=== PATIENT | female | born 1965 | race Hispanic/Latino ===

== ENCOUNTER 2017-04-10 06:26 | Emergency (ER) | payer MEDICAID ==
[2017-04-10 06:27] VITALS: BMI 24.2
[2017-04-10 07:11] VITALS: TEMP 99.5
--- NOTE | 2017-04-10 07:50 | ED PDOC ---
Arrival/HPI - General Chief Complaint: Shortness Of Breath Time Seen by Provider: 04/10/17 07:44 - History of Present Illness Narrative History of Present Illness (Text): 51 y/o F c PMHx COPD on home O2 p/w shortness of breath this morning. Patient states she awoke feeling short of breath. She states this dypsnea is the same as her COPD. She states it is now resolved, and she feels completely better. She reports cough productive of green sputum now. Denies fever, nausea, vomiting , body aches, ear pain, sore throat, recent travel, or sick contacts. Past Medical History - Infectious Disease Hx of Infectious Diseases: None - Tetanus Immunization Tetanus Immunization: Unknown - Cardiac Hx Heart Murmur: Yes - Pulmonary Hx Asthma: Yes Hx Chronic Obstructive Pulmonary Disease (COPD): Yes - Neurological Hx Neurological Disorder: No - HEENT Hx HEENT Disorder: No - Renal Hx Renal Disorder: No - Endocrine/Metabolic Hx Diabetes Mellitus Type 2: Yes - Hematological/Oncological Hx Blood Disorders: No - Integumentary Hx Dermatological Disorder: (shingles) - Musculoskeletal/Rheumatological Hx Back Pain: Yes Hx Falls: No Hx Herniated Disk: Yes - Gastrointestinal Hx Gastroesophageal Reflux: Yes - Genitourinary/Gynecological Hx Cervical Cancer: (pre cervical ca cone bx) - Psychiatric Hx Anxiety: Yes Hx Depression: Yes Hx Emotional Abuse: No Hx Physical Abuse: No Hx Substance Use: No - Past Surgical History Past Surgical History: No Previous - Surgical History Hx Section: Yes Other/Comment: x 2 - Anesthesia Hx Anesthesia: Yes Hx Anesthesia Reactions: No Hx Malignant Hyperthermia: No - Suicidal Assessment Feels Threatened In Home Enviroment: No Family/Social History Family/Social History: No Known Family HX Smoking Status: Light Smoker < 10 Cigarettes Daily Hx Alcohol Use: No Hx Substance Use: No Allergies/Home Meds Allergies/Adverse Reactions: Allergies ketorolac tromethamine [From Toradol] Allergy (Verified 04/10/17 06:43) NAUSEA Review of Systems - Physician Review All systems were reviewed & negative as marked: Yes - Review of Systems Constitutional: absent: Fevers Gastrointestinal: absent: Abdominal Pain Physical Exam - Physical Exam Narrative Physical Exam (Text): Gen: NAD Head: NC Eyes: PERRL ENT: No pharyngeal erythema or exudates. Neck: No stiffness Chest: Midline sternotomy scar CV: Regular rate Lungs: No wheezing. Abd: Soft, nontender Ext: No swelling or tenderness Skin: No rash. Scar as above. Neuro: Alert, no focal deficit Vital Signs Temp Pulse Resp BP Pulse Ox 04/10/17 10:21 87 12 99/65 L 95 04/10/17 08:30 63 18 142/75 97 04/10/17 07:09 99.5 F 80 18 120/69 95 Medical Decision Making ED Course and Treatment: Patient with normal vital signs and no current symptoms. Will check CXR to rule out pneumonia and check influenza swab. 04/10/17 09:35 EKG: Normal sinus rhythm Rate: [address] T wave changes 04/10/17 10:35 CXR no acute disease. Stable appearing Left lung changes. Patient in no distress. Will discharge on Prednisone for COPD exacerbation this morning. - Lab Interpretations Lab Results: Lab Results 04/10/17 09:00: Influenza Typ A,B (EIA) Negative for flu a/b - RAD Interpretation Radiology Orders: 04/10/17 07:45 CHEST PORTABLE [RAD] Stat Disposition/Present on Arrival - Present on Arrival Any Indicators Present on Arrival: No History of DVT/PE: No History of Uncontrolled Diabetes: No Urinary Catheter: No History of Decub. Ulcer: No History Surgical Site Infection Following: None - Disposition Have Diagnosis and Disposition been Completed?: Yes Diagnosis: COPD (chronic obstructive pulmonary disease) Disposition: HOME/ ROUTINE Disposition Time: 10:34 Patient Plan: Discharge Condition: STABLE Discharge Instructions (ExitCare): COPD (Chronic Obstructive Pulmonary Disease ) (ED) Prescriptions: Azithromycin [Zithromax] 2 tab PO DAILY #6 tab Prednisone [Deltasone] 3 tab PO DAILY #12 tablet Referrals: [facility] Jessica Nguyen, [Non-Staff] - Follow up with primary Forms: Goomeo (Chinese)
[2017-04-10 10:25] VITALS: BP 99/65; PULSE 87; RESP 12; O2SAT 95
--- NOTE | 2017-04-10 10:43 | RAD ---
HISTORY: cough COMPARISON: Comparison chest and CT scan chest both dated 01/18/2016 FINDINGS: LUNGS: Current study re- demonstrates a large left upper lobe bulla with left lower lobe atelectasis and or infiltrate. Blunting left CP angle could be due to small effusion or chronic pleural thickening. Suspect minor right basilar atelectasis PLEURA: As above. CARDIOVASCULAR: Sternotomy wires again noted. Heart size within range of normal. OSSEOUS STRUCTURES: No significant abnormalities. VISUALIZED UPPER ABDOMEN: Normal. OTHER FINDINGS: None. IMPRESSION: Current study re- demonstrates a large left upper lobe bulla with left lower lobe atelectasis and or infiltrate. Blunting left CP angle could be due to small effusion or chronic pleural thickening. Suspect minor right basilar atelectasis .
--- NOTE | 2017-04-10 15:52 | CARD ---
APPROVED REPORT EKG Measurement Heart [id number] <Conclusion> Normal sinus rhythm Normal ECG
== END 2017-04-10 10:45 | disposition home or self-care (01) ==
LOC: ED 06:26
DX: J44.9 Chronic obstructive pulmonary disease, unspecified (principal); Z99.81 Dependence on supplemental oxygen; E11.9 Type 2 diabetes mellitus without complications; F17.210 Nicotine dependence, cigarettes, uncomplicated

== ENCOUNTER 2018-04-17 14:32 | Inpatient (IN) | payer MEDICAID ==
[2018-04-17 14:32] VITALS: BMI 24.2
--- NOTE | 2018-04-17 14:42 | ED PDOC ---
Arrival/HPI - General Historian: Patient - History of Present Illness Narrative History of Present Illness (Text): 04/17/18 14:44 52 year old female, whose past medical history includes cholelithiasis and diabetes, murmur, asthma, COPD, and GERD, who presents to the emergency dep artment complaining of left rib pain for the past 3 days. Patient states she fell down the stairs 2 weeks ago. She notes secondary generalized tremors and that she has been taking all her medication. She denied ETOH abuse or substance abuse. Patient also denies fevers, chills, headache, dizziness, chest pain, shortness of breath, dyspnea on exertion, cough, abdominal pain, nausea, vomiting, diarrhea, back pain, neck pain, or any other complaint. PMD: Dr. Rivera Time/Duration: < week Symptom Onset: Gradual Symptom Course: Unchanged Activities at Onset: Light Context: Home Past Medical History - Provider Review Nursing Documentation Reviewed: Yes - Travel History Have you recently traveled outside [place] w/in the past 3 mons?: No - Infectious Disease Hx of Infectious Diseases: None - Tetanus Immunization Tetanus Immunization: Unknown - Reproductive Currently : No - Cardiac Hx Heart Murmur: Yes - Pulmonary Hx Asthma: Yes Hx Chronic Obstructive Pulmonary Disease (COPD): Yes - Neurological Hx Neurological Disorder: No - HEENT Hx HEENT Disorder: No - Renal Hx Renal Disorder: No - Endocrine/Metabolic Hx Diabetes Mellitus Type 2: Yes - Hematological/Oncological Hx Blood Disorders: No - Integumentary Hx Dermatological Disorder: (shingles) - Musculoskeletal/Rheumatological Hx Back Pain: Yes Hx Falls: No Hx Herniated Disk: Yes - Gastrointestinal Hx Gastroesophageal Reflux: Yes - Genitourinary/Gynecological Hx Cervical Cancer: (pre cervical ca cone bx) - Psychiatric Hx Anxiety: Yes Hx Depression: Yes Hx Emotional Abuse: No Hx Physical Abuse: No Hx Substance Use: No - Past Surgical History Past Surgical History: No Previous - Surgical History Hx Section: Yes Other/Comment: x 2 - Anesthesia Hx Anesthesia: Yes Hx Anesthesia Reactions: No Hx Malignant Hyperthermia: No - Suicidal Assessment Feels Threatened In Home Enviroment: No Family/Social History - Physician Review Nursing Documentation Reviewed: Yes Family/Social History: No Known Family HX Smoking Status: Light Smoker < 10 Cigarettes Daily Hx Alcohol Use: No Hx Substance Use: No Allergies/Home Meds Allergies/Adverse Reactions: Allergies ketorolac tromethamine [From Toradol] Allergy (Verified 04/17/18 15:03) NAUSEA Home Medications: Home Meds Medication Instructions Recorded Confirmed RX: Albuterol Sulfate [Proair Hfa] 200 puff INH DAILY 04/17/18 04/17/18 RX: Alprazolam [Xanax] 2 mg PO DAILY 04/17/18 04/17/18 RX: Aspirin [Aspirin Chewable] 81 mg PO DAILY 04/17/18 04/17/18 RX: HYDROmorphone [Dilaudid] 4 mg PO PRN PRN 04/17/18 04/17/18 RX: oxyCODONE [oxyCODONE Immediate 30 mg PO QID 04/17/18 04/17/18 Release Tab] Review of Systems - Physician Review All systems were reviewed & negative as marked: Yes - Review of Systems Constitutional: Other (generalized ). absent: Fevers Respiratory: absent: SOB, Cough Cardiovascular: absent: Chest Pain Gastrointestinal: absent: Abdominal Pain, Diarrhea, Nausea, Vomiting Genitourinary Female: absent: Dysuria, Frequency Musculoskeletal: Other (left rib pain ). absent: Back Pain, Neck Pain Neurological: absent: Headache, Dizziness Physical Exam Vital Signs Reviewed: Yes Temperature: Afebrile Blood Pressure: Hypertensive Pulse: Tachycardic Respiratory Rate: Normal Appearance: Positive for: Non-Toxic, Unkept Pain Distress: None Mental Status: Positive for: Alert and Oriented X 3 - Systems Exam Head: Present: Atraumatic, Normocephalic Pupils: Present: PERRL Extroacular Muscles: Present: EOMI Conjunctiva: Present: Normal Mouth: Present: Moist Mucous Membranes. No: Normal Teeth (poor dentition) Neck: Present: Normal Range of Motion Respiratory/Chest: Present: Clear to Auscultation, Good Air Exchange. No: Respiratory Distress, Accessory Muscle Use Cardiovascular: Present: Regular Rate and Rhythm, Normal S1, S2. No: Murmurs Abdomen: Present: Tenderness (tender to palpation left lower quadrant ), Other (soft). No: Distention, Peritoneal Signs Back: Present: Normal Inspection Upper Extremity: Present: Normal Inspection. No: Cyanosis, Edema Lower Extremity: Present: Normal Inspection. No: Edema Neurological: Present: GCS=15, CN II-XII Intact, Speech Normal, Other (generalized tremors) Skin: Present: Warm, Dry, Normal Color. No: Rashes Psychiatric: Present: Alert, Oriented x 3, Normal Insight, Normal Concentration, Other (tearful on exam ) Medical Decision Making ED Course and Treatment: 04/17/18 14:45 Impression: 52 year old female who presents to the emergency department complaining of left sided rib pain. Differential Diagnosis included but are not limited to: Substance abuse related -hypertension urgency Plan: -- VBG -- Labs -- Chest X-ray -- Duoneb -- SOLU-medrol -- Urinalysis --Pepcid --Maalox -- --Percocet -- Reassess and disposition Prior Visits: Notes and results from previous visits were reviewed. Progress Notes: 04/17/18 19:08 Labs reviewed with no leukocytosis or electrolyte abnormalities. XR reviewed with no acute rib fractures visualized, however shows ABIMAEL infiltrate and bleb. Patient reevaluated and still is in pain. She wishes to stay in the hospital. Call placed to hospitalist. 04/17/18 19:[address] Cochran(house staff) and nuclear medical tech who accepts patient onto hospitalist service. - Lab Interpretations Lab Results: 04/17/18 15:30 04/17/18 15:30 Lab Results 04/17/18 15:50: Urine Opiates Screen Positive H, Urine Methadone Screen Negative, Ur Barbiturates Screen Negative, Ur Phencyclidine Scrn Negative, Ur Amphetamines Screen Negative, U Benzodiazepines Scrn Positive H, U Oth Cocaine Metabols Negative, U Cannabinoids Screen Negative 04/17/18 15:48: Urine Color Yellow, Urine Appearance Clear, Urine pH 7.0, Ur Specific [place] 1.020, Urine Protein 30 H, Urine Glucose (UA) Negative, Urine Ketones Trace H, Urine Blood Trace-intact H, Urine Nitrate Negative, Urine Bilirubin Negative, Urine Urobilinogen 0.2, Ur Leukocyte Esterase Negative, Urine RBC 10 - 15 H, Urine WBC 2 - 5, Ur Epithelial Cells 3 - 4 04/17/18 15:40: pO2 230 H, VBG pH 7.44 H, VBG pCO2 46.0, VBG HCO3 31.2 H, VBG Total CO2 32.6 H, VBG O2 Sat (Calc) 100.1 H, VBG Base Excess 6.1 H, VBG Potassium 3.7, Glucose 98, Lactate 1.1, FiO2 21.0, Sodium 142.0, Chloride 107.0, Venous Blood Potassium 3.7 04/17/18 15:30: Sodium 141, Potassium 3.9, Chloride 105, Carbon Dioxide 30, Anion Gap 10, BUN 9, Creatinine 0.8, Est GFR ( Amer) > 60, Est GFR (Non- Af Amer) > 60, Random Glucose 111 H, Calcium 9.6, Magnesium 1.8, Total Bilirubin 0.7, AST 27, ALT 26, Alkaline Phosphatase 121, Troponin I < 0.01, NT-Pro-B Natriuret Pep 510 H, Total Protein 8.4 H, Albumin 4.4, Globulin 3.9, Albumin/Globulin Ratio 1.1 04/17/18 15:30: PT 13.1 H, INR 1.18, APTT 37.4 04/17/18 15:30: WBC 5.8, RBC 3.84, Hgb 11.2 L, Hct 34.3 L, MCV 89.3, MCH 29.2, MCHC 32.7, RDW 13.9, Plt Count 255, MPV 10.4, Neut % (Auto) 53.2, Lymph % (Auto) 38.7 H, [place] % (Auto) 7.6 H, Eos % (Auto) 0.2 L, Baso % (Auto) 0.3, Lymph # (Auto) 2.2, [place] # (Auto) 0.4, Eos # (Auto) 0.0, Baso # (Auto) 0.02, Absolute Ne uts (auto) 3.08 I have reviewed the lab results: Yes - Scribe Statement The provider has reviewed the documentation as recorded by the Tess Oliveira Provider Scribe Attestation: All medical record entries made by the Scribe were at my direction and personally dictated by me. I have reviewed the chart and agree that the record accurately reflects my personal performance of the history, physical exam, medical decision making, and the department course for this patient. I have also personally directed, reviewed, and agree with the discharge instructions and disposition. Disposition/Present on Arrival - Present on Arrival Any Indicators Present on Arrival: No History of DVT/PE: No History of Uncontrolled Diabetes: No Urinary Catheter: No History Surgical Site Infection Following: None - Disposition Have Diagnosis and Disposition been Completed?: No Diagnosis: PNA (pneumonia) Disposition: HOSPITALIZED Disposition Time: 19:38 Patient Plan: Admission Condition: IMPROVED
[2018-04-17] MEDS ORDERED: Albuterol-Ipratrop 3 mg / 0.5 (3 ml) UD IH STA (15:11)
[2018-04-17 15:54] LABS: VENOUS BLOOD GAS BASE EXCESS 6.1 mmol/L (0.0-2.0); VENOUS BLOOD GAS PO2 230 mm/Hg (30-55); VENOUS BLOOD PH 7.44 (7.32-7.43)
[2018-04-17 16:02] LABS: URINE BILIRUBIN NEGATIVE (NEGATIVE); URINE BLOOD TRACE-INTACT (NEGATIVE); URINE GLUCOSE (UA) NEGATIVE (NEGATIVE); URINE LEUKOCYTE ESTERASE NEGATIVE Leu/uL (NEGATIVE); URINE PROTEIN 30 mg/dL (<30 mg/dL); URINE UROBILINOGEN 0.2 E.U./dL (<1 E.U./dL)
[2018-04-17 16:03] LABS: URINE APPEARANCE CLEAR (CLEAR); URINE COLOR YELLOW (YELLOW)
[2018-04-17 16:03] LABS: ALB/GLOB RATIO 1.1 (1.1-1.8); ALBUMIN 4.4 g/dL (3.0-4.8); ALT/SGPT 26 U/L (7-56); AST/SGOT 27 U/L (14-36); BLOOD UREA NITROGEN 9 mg/dL (7-21); CALCIUM 9.6 mg/dL (8.4-10.5); GFR NON-AFRICAN AMERICAN > 60
[2018-04-17 16:04] LABS: BASO # 0.02 K/mm3 (0.0-2.0); BASO % 0.3 % (0.0-3.0); EOS % 0.2 % (1.5-5.0); HEMOGLOBIN 11.2 g/dL (12.0-16.0); LYMPH # 2.2 (1.2-3.4); LYMPH % 38.7 % (22.0-35.0); MEAN CELL VOLUME 89.3 fl (80.0-105.0); MEAN CORPUSCULAR HEMOGLOBIN 29.2 pg (25.0-35.0); MEAN CORPUSCULAR HGB CONC 32.7 g/dl (31.0-37.0); MEAN PLATELET VOLUME 10.4 fl (7.0-11.0); MONO # 0.4 (0.1-0.6); MONO % 7.6 % (1.0-6.0); RBC 3.84 10^6/uL (3.5-6.1); RED CELL DISTRIBUTION WIDTH 13.9 % (11.5-14.5); WHITE BLOOD COUNT 5.8 10^3/uL (4.5-11.0)
[2018-04-17 16:06] LABS: INR 1.18; PARTIAL THROMBOPLASTIN TIME 37.4 Seconds (26.9-38.3); PROTHROMBIN TIME 13.1 SECONDS (9.4-12.5)
[2018-04-17 16:15] LABS: B-TYPE NATRIURETIC PEPTIDE 510 pg/mL (0-450); TROPONIN I < 0.01 ng/mL
[2018-04-17 16:21] LABS: PHENCYCLIDINE, UR NEGATIVE (NEGATIVE)
[2018-04-17 16:28] LABS: BARBITURATES, UR NEGATIVE (NEGATIVE); BENZODIAZEPINES, UR POSITIVE (NEGATIVE); OPIATES, UR POSITIVE (NEGATIVE)
[2018-04-17] MEDS ORDERED: Oxycodone/Acetaminophen 5/325 mg Tab PO STA (17:55)
[2018-04-17] MEDS ORDERED: Atrop/Hyosc/Scopal/PB Elixir (120 ml) PO STA (18:13)
[2018-04-17] MEDS ORDERED: Alum-Mag Hydrox-Simethicone Susp (30 mL) PO STA (18:13)
--- NOTE | 2018-04-17 18:23 | RAD ---
Date of service: 04/17/2018 PROCEDURE: Radiographs of the Chest and Left Ribs. HISTORY: s/p fall w/ L rib pain COMPARISON: Chest x-ray performed 08/26/17 TECHNIQUE: Frontal radiograph of the chest and multiple oblique radiographs of the left ribs were obtained. FINDINGS: LEFT RIBS: No acute displaced fracture identified. LUNGS: Large left upper lobe bulla. Left basilar atelectasis/infiltrate. PLEURA: No significant pleural effusion. No definite pneumothorax. CARDIOVASCULAR: Median sternotomy wires. Heart size appears top normal. No aortic atherosclerotic calcification present. OTHER FINDINGS: Right upper quadrant surgical clips. IMPRESSION: Large left upper lobe bulla. Left basilar atelectasis/infiltrate.
[2018-04-17] MEDS ORDERED: Labetalol 5 mg/ml Inj 20ML IV STA (19:16)
[2018-04-17] MEDS ORDERED: cefTRIAXone 1 gm 1 GM/100 ML BAG IVPB STA (19:38)
--- NOTE | 2018-04-17 20:34 | CP.PCM.HP ---
History of Present Illness - History of Present Illness History of Present Illness: Quinton Lama, PGY1 H&P for Dr. Dwyer cc: left rib pain x3 days and tremors Patient is a 52 year old female, whose PMHx includes DM II, cholelithiasis, asthma, COPD, GERD, CABG, Chronic Opiate Dependence who presents to the ED complaining of left sided rib pain for the past 3 days. In the ED, Vitals: Temp 98, HR 91, BP 168/120, RR 20, SaO2 98%. Medical team consulted for evaluation. Patient states she had an associated fall about 2 weeks ago. She also endorses tremors. Patient denies taking any recreational drugs. She says she does drink a lot of coffee, almost 5 cups a day. She has no cough, fever, chills, chest pain, shortness of breath, abdominal pain, n/v/d. Patient is alert and oriented however she goes off on tangents during interview. She is not a reliable historian. Patient does mention that she goes to a pain management doctor. She says that she does not drink alcohol. A full 12 point ROS was conducted and unremarkable except as stated above. PMD: Dr. Rivera PMHx: DM II, cholelithiasis, asthma, COPD, GERD, CABG, Chronic Opiate Dependence PSHx: x2, CABG Meds: see MAR Allergies: ketorolac (Toradol) SocialHx: smokes < 10 cigarettes daily x35 years, denies drinking and drug use. Coffee 5 cups/day. Lives at home and has kids. FamHx: non-contributory. Present on Admission - Present on Admission Any Indicators Present on Admission: No Review of Systems - Review of Systems All systems: reviewed and no additional remarkable complaints except (as per HPI) Past Patient History - Infectious Disease Hx of Infectious Diseases: None - Tetanus Immunizations Tetanus Immunization: Unknown - Past Medical History & Family History Past Medical History?: Yes - Past Social History Smoking Status: Light Smoker < 10 Cigarettes Daily - CARDIAC Hx Heart Murmur: Yes - PULMONARY Hx Asthma: Yes Hx Chronic Obstructive Pulmonary Disease (COPD): Yes - NEUROLOGICAL Hx Neurological Disorder: No - HEENT Hx HEENT Problems: No - RENAL Hx Chronic Kidney Disease: No - ENDOCRINE/METABOLIC Hx Diabetes Mellitus Type 2: Yes - HEMATOLOGICAL/ONCOLOGICAL Hx Blood Disorders: No - INTEGUMENTARY Hx Dermatological Problems: (shingles) - MUSCULOSKELETAL/RHEUMATOLOGICAL Hx Back Pain: Yes Hx Falls: No Hx Herniated Disk: Yes - GASTROINTESTINAL Hx Gastroesophageal Reflux: Yes - GENITOURINARY/GYNECOLOGICAL Hx Cervical Cancer: (pre cervical ca cone bx) - PSYCHIATRIC Hx Anxiety: Yes Hx Depression: Yes Hx Emotional Abuse: No Hx Physical Abuse: No Hx Substance Use: No - SURGICAL HISTORY Hx Section: Yes Other/Comment: x 2 - ANESTHESIA Hx Anesthesia: Yes Hx Anesthesia Reactions: No Hx Malignant Hyperthermia: No Meds Allergies/Adverse Reactions: Allergies Allergy/AdvReac Type Severity Reaction Status Date / Time ketorolac tromethamine Allergy NAUSEA Verified 04/17/18 15:03 [From Toradol] Physical Exam - Constitutional Appears: Agitated - Head Exam Head Exam: ATRAUMATIC, NORMAL INSPECTION, NORMOCEPHALIC - Eye Exam Eye Exam: EOMI, Normal appearance - ENT Exam ENT Exam: Mucous Membranes Moist - Respiratory Exam Respiratory Exam: Clear to Auscultation Bilateral. absent: Rales, Rhonchi, Wheezes - Cardiovascular Exam Cardiovascular Exam: REGULAR RHYTHM, +S1, +S2 Additional comments: Tenderness to palpation of the left lower ribs. - GI/Abdominal Exam GI & Abdominal Exam: Normal Bowel Sounds, Soft. absent: Distended, Rebound, Rigid, Tenderness - Extremities Exam Extremities exam: Positive for: full ROM, normal capillary refill, normal inspection, pedal pulses present. Negative for: pedal edema, tenderness - Neurological Exam Neurological exam: Alert, Oriented x3 - Psychiatric Exam Psychiatric exam: Agitated, Anxious - Skin Skin Exam: Dry, Intact, Normal Color, Warm Results - Vital Signs Recent Vital Signs: Last Vital Signs Temp 98 F 04/17/18 20:00 Pulse 71 04/17/18 20:00 Resp 18 04/17/18 20:00 BP 162/97 H 04/17/18 20:00 Pulse Ox 97 04/17/18 20:00 - Labs Result Diagrams: 04/17/18 15:30 04/17/18 15:30 Labs: Laboratory Results - last 24 hr 04/17/18 04/17/18 04/17/18 15:30 15:30 15:30 WBC 5.8 RBC 3.84 Hgb 11.2 L Hct 34.3 L MCV 89.3 MCH 29.2 MCHC 32.7 RDW 13.9 Plt Count 255 MPV 10.4 Neut % (Auto) 53.2 Lymph % (Auto) 38.7 H [place] % (Auto) 7.6 H Eos % (Auto) 0.2 L Baso % (Auto) 0.3 Lymph # (Auto) 2.2 [place] # (Auto) 0.4 Eos # (Auto) 0.0 Baso # (Auto) 0.02 Absolute Neuts (auto) 3.08 PT 13.1 H INR 1.18 APTT 37.4 pO2 VBG pH VBG pCO2 VBG HCO3 VBG Total CO2 VBG O2 Sat (Calc) VBG Base Excess VBG Potassium Glucose Lactate FiO2 Sodium 141 Potassium 3.9 Chloride 105 Carbon Dioxide 30 Anion Gap 10 BUN 9 Creatinine 0.8 Est GFR ( Amer) > 60 Est GFR (Non-Af Amer) > 60 Random Glucose 111 H Calcium 9.6 Magnesium 1.8 Total Bilirubin 0.7 AST 27 ALT 26 Alkaline Phosphatase 121 Troponin I < 0.01 NT-Pro-B Natriuret Pep 510 H Total Protein 8.4 H Albumin 4.4 Globulin 3.9 Albumin/Globulin Ratio 1.1 Venous Blood Potassium Urine Color Urine Appearance Urine pH Ur Specific [place] Urine Protein Urine Glucose (UA) Urine Ketones Urine Blood Urine Nitrate Urine Bilirubin Urine Urobilinogen Ur Leukocyte Esterase Urine RBC Urine WBC Ur Epithelial Cells Urine Opiates Screen Urine Methadone Screen Ur Barbiturates Screen Ur Phencyclidine Scrn Ur Amphetamines Screen U Benzodiazepines Scrn U Oth Cocaine Metabols U Cannabinoids Screen 04/17/18 04/17/18 04/17/18 15:40 15:48 15:50 WBC RBC Hgb Hct MCV MCH MCHC RDW Plt Count MPV Neut % (Auto) Lymph % (Auto) [place] % (Auto) Eos % (Auto) Baso % (Auto) Lymph # (Auto) [place] # (Auto) Eos # (Auto) Baso # (Auto) Absolute Neuts (auto) PT INR APTT pO2 230 H VBG pH 7.44 H VBG pCO2 46.0 VBG HCO3 31.2 H VBG Total CO2 32.6 H VBG O2 Sat (Calc) 100.1 H VBG Base Excess 6.1 H VBG Potassium 3.7 Glucose 98 Lactate 1.1 FiO2 21.0 Sodium 142.0 Potassium Chloride 107.0 Carbon Dioxide Anion Gap BUN Creatinine Est GFR ( Amer) Est GFR (Non-Af Amer) Random Glucose Calcium Magnesium Total Bilirubin AST ALT Alkaline Phosphatase Troponin I NT-Pro-B Natriuret Pep Total Protein Albumin Globulin Albumin/Globulin Ratio Venous Blood Potassium 3.7 Urine Color Yellow Urine Appearance Clear Urine pH 7.0 Ur Specific [place] 1.020 Urine Protein 30 H Urine Glucose (UA) Negative Urine Ketones Trace H Urine Blood Trace-intact H Urine Nitrate Negative Urine Bilirubin Negative Urine Urobilinogen 0.2 Ur Leukocyte Esterase Negative Urine RBC 10 - 15 H Urine WBC 2 - 5 Ur Epithelial Cells 3 - 4 Urine Opiates Screen Positive H Urine Methadone Screen Negative Ur Barbiturates Screen Negative Ur Phencyclidine Scrn Negative Ur Amphetamines Screen Negative U Benzodiazepines Scrn Positive H U Oth Cocaine Metabols Negative U Cannabinoids Screen Negative Assessment & Plan - Assessment and Plan (Free Text) Assessment: Patient is a 52 year old female, whose PMHx includes DM II, cholelithiasis, asthma, COPD, GERD, CABG, Chronic Opiate Dependence who presents to the ED complaining of left sided rib pain for the past 3 days. Patient will be admitted for CAP and Opiate Dependence with symptoms of withdrawal. Plan: Left Rib Pain 2/2 CAP - acetaminophen q6 prn for pain control - duonebs prn - azithro and rocephin - procalcitonin - f/u blood cx - f/u sputum cx - afebrile and no leukocytosis - CXR: no acute rib fractures. Large left upper lobe bulla. Left basilar infiltrate. Chronic Opiate Dependence - Symptoms of Withdrawal - Ativan 2mg IVP q3 prn - Banana bag - Patient agitated and irritable on the floor - behavioral risk, may benefit from psych evaluation - Given stat dose of percocet and ativan on floor - Geodon administered x1 on floor; no hx of prolonged QT interval on old EKGs - Restraints - 1:1 sitter - Utox +opiates, +benzo - EtOH level negative Hx Tobacco Abuse - nicotine patch - educated on smoking cessation DVT ppx: Heparin sc GI ppx: ptx Diet: HHD Dispo: Monitor patient on the floor. Currently has restraints and 1:1 sitter. Given patient's behavioral risks, patient may benefit from psych consult. Case was discussed and reviewed with Attending Physician, Dr. Dwyer
[2018-04-17] MEDS ORDERED: Folic Acid 1 MG, Thiamine 100 MG, Multivitamin (MVI) 10 ML in Dextrose 5% In Water 1,00... IV SCH (21:45)
[2018-04-17] MEDS ORDERED: Oxycodone/Acetaminophen 5/325 mg Tab PO ONE (23:33)
[2018-04-18] MEDS: Pantoprazole 40 mg EC Tab PO SCH (06:04)
[2018-04-18 07:55] LABS: MEAN CELL VOLUME 88.9 fl (80.0-105.0); MEAN CORPUSCULAR HGB CONC 32.6 g/dl (31.0-37.0); MEAN PLATELET VOLUME 10.1 fl (7.0-11.0); RBC 3.79 10^6/uL (3.5-6.1); RED CELL DISTRIBUTION WIDTH 13.9 % (11.5-14.5); WHITE BLOOD COUNT 7.5 10^3/uL (4.5-11.0)
[2018-04-18 08:21] LABS: ALB/GLOB RATIO 1.3 (1.1-1.8); ALBUMIN 4.4 g/dL (3.0-4.8); ALT/SGPT 23 U/L (7-56); AST/SGOT 29 U/L (14-36); BLOOD UREA NITROGEN 18 mg/dL (7-21); CALCIUM 9.8 mg/dL (8.4-10.5); GFR NON-AFRICAN AMERICAN > 60
[2018-04-18] MEDS: cefTRIAXone 1 gm 1 GM/100 ML BAG IVPB SCH (09:09)
[2018-04-18] MEDS: Azithromycin 250 MG in Sodium Chloride 0.9% 250 ML IVPB SCH (12:42)
[2018-04-18] MEDS: Multivitamin Therapeutic Tab PO SCH (12:44)
--- NOTE | 2018-04-18 14:45 | CT ---
Date of service: 04/18/2018 PROCEDURE: CT Chest without contrast HISTORY: bulla COMPARISON: 01/20/2014 TECHNIQUE: Contiguous axial images were obtained through the chest without intravenous contrast enhancement. Sagittal and coronal reconstructions were performed. Radiation dose: Total exam DLP = mGy-cm. This CT exam was performed using one or more of the following dose reduction techniques: Automated exposure control, adjustment of the mA and/or kV according to patient size, and/or use of iterative reconstruction technique. FINDINGS: LUNGS: No significant with change in severe left lung pulse disease with a dominant roughly 13 centimeter bulla in the posterior aspect of the left upper lung zone tracking inferiorly. Superimposed emphysematous changes. MEDIASTINUM: 3.9 centimeter borderline ascending aortic aneurysm. Status post median sternotomy. Normal sized heart. Main pulmonary artery unremarkable. No vascular congestion. No lymphadenopathy. No aortic atherosclerotic calcification. PLEURA: No pleural fluid. No pneumothorax. BONES: No fracture. No destructive lesion. UPPER ABDOMEN: Grossly unremarkable. OTHER FINDINGS: None. IMPRESSION: No significant with change in severe left lung pulse disease with a dominant roughly 13 centimeter bulla in the posterior aspect of the left upper lung zone tracking inferiorly. Superimposed emphysematous changes.
--- NOTE | 2018-04-18 15:45 | CP.PCM.PN ---
<Blu Motley - Last Filed: 04/18/18 16:21> Subjective - Date & Time of Evaluation Date of Evaluation: 04/18/18 Time of Evaluation: 07:35 - Subjective Subjective: Pt seen and examined this morning at bedside. Per nursing, when pt was received she was very confused, pumped out the hand manager provider relations and wiped it all over the lim, hid the scanner from the nurse, pt was very agitated and anxious, pt given ativan, and geodon, pt has a 1:1. Objective - Vital Signs/Intake and Output Vital Signs (last 24 hours): Temp Pulse Resp BP Pulse Ox 97.8 F 96 H 20 115/80 96 04/18/18 06:00 04/18/18 14:00 04/18/18 14:00 04/18/18 14:00 04/18/18 14:00 Intake and Output: 04/18/18 04/18/18 06:59 18:59 Intake Total 360 Balance 360 - Medications Medications: Current Medications Acetaminophen (Tylenol 325mg Tab) 650 mg PO Q6H PRN PRN Reason: Pain, moderate (4-7) Albuterol/Ipratropium (Duoneb 3 Mg/0.5 Mg (3 Ml) Ud) 3 ml IH Q4H PRN PRN Reason: Shortness of Breath Folic Acid (Folic Acid) 1 mg PO DAILY [facility] Last Admin: 04/18/18 12:44 Dose: Not Given Heparin Sodium (Porcine) (Heparin) 5,000 units SC Q8 [facility]; Protocol Last Admin: 04/18/18 06:02 Dose: 5,000 units Hydromorphone HCl (Dilaudid) 4 mg PO Q6H PRN PRN Reason: Pain, severe (8-10) Azithromycin 250 mg/ Sodium (Chloride) 250 mls @ 167 mls/hr IVPB DAILY [facility]; Protocol Last Admin: 04/18/18 12:42 Dose: 167 mls/hr Ceftriaxone Sodium (Rocephin 1 Gram Ivpb) 1 gm in 100 mls @ 100 mls/hr IVPB DAILY [facility]; Protocol Stop: 04/22/18 10:59 Last Admin: 04/18/18 09:09 Dose: 100 mls/hr Lorazepam (Ativan) 2 mg IVP Q3H PRN; Protocol PRN Reason: Anxiety Last Admin: 04/18/18 12:58 Dose: 2 mg Multivitamins (Thera Tab) 1 tab PO DAILY [facility] Last Admin: 04/18/18 12:44 Dose: Not Given Nicotine (Nicoderm Cq) 1 patch TD DAILY [facility] Last Admin: 04/18/18 12:42 Dose: 1 patch Oxycodone HCl (Oxycodone Immediate Release Tab) 30 mg PO QID [facility] Pantoprazole Sodium (Protonix Ec Tab) 40 mg PO 0600 [facility] Last Admin: 04/18/18 06:04 Dose: 40 mg Thiamine HCl (Vitamin B1 Tab) 100 mg PO DAILY [facility] Last Admin: 04/18/18 12:44 Dose: Not Given - Labs Labs: 04/18/18 07:30 04/18/18 07:30 PT 13.1 SECONDS (9.4-12.5) H 04/17/18 15:30 INR 1.18 04/17/18 15:30 APTT 37.4 Seconds (26.9-38.3) 04/17/18 15:30 - Constitutional Appears: No Acute Distress - Head Exam Head Exam: ATRAUMATIC, NORMOCEPHALIC - Eye Exam Eye Exam: EOMI - ENT Exam ENT Exam: Mucous Membranes Moist - Neck Exam Neck Exam: Full ROM - Respiratory Exam Respiratory Exam: Clear to Ausculation Bilateral, NORMAL BREATHING PATTERN. absent: Accessory Muscle Use, Respiratory Distress - Cardiovascular Exam Cardiovascular Exam: +S1, +S2. absent: Diastolic murmur, Murmur - GI/Abdominal Exam GI & Abdominal Exam: Soft, Normal Bowel Sounds. absent: Tenderness - Extremities Exam Extremities Exam: Full ROM. absent: Calf Tenderness, Pedal Edema - Neurological Exam Neurological Exam: Alert, Awake - Psychiatric Exam Psychiatric exam: Normal Affect, Normal Mood - Skin Skin Exam: Dry, Normal Color, Warm Assessment and Plan - Assessment and Plan (Free Text) Assessment: Pt is a 52 yo female, with a PMH of DM II, asthma, COPD, GERD, CABG, chronic opiate dependence who presents to the ED complaining of left sided rib pain for the past 3 days. Plan: CAP, left sided rib pain - history of COPD requiring home O2 2L, asthma - duonebs prn - continue azithro - continue rocephin - blood culture, pending - sputum culture, pending - CXR: no acute rib fractures. Large left upper lobe bulla. Left basilar infiltrate. - CT Chest: no significant change in severe left lung pulse disease with a dominant roughly 13 centimeter bulla in the posterior aspect of the left upper lung zone tracking inferiorly. Superimposed emphysematous changes. Chronic Back Pain - chronic opiod dependence - monitor for signs of withdrawal, given ativan and geodon yesterday - UDS POS opiates, POS benzo, EtOH level negative - diladid PO 4mg Q6 PRN - oxycodone 30mg PO QID DM - well controlled at this time, will monitor Hx Tobacco Use Disorder - nicotine patch - counseled on smoking cessation GERD - protonix Ppx, Diet - Heparin - protonix - HHD Pt seen, examined, assessment and plan discussed with Dr Kati Motley PGY1, Internal Medicine Resident <Kati Zhong R - Last Filed: 04/20/18 07:48> Objective - Vital Signs/Intake and Output Vital Signs (last 24 hours): Temp Pulse Resp BP Pulse Ox 98.5 F 76 20 138/90 98 04/19/18 22:00 04/19/18 22:00 04/19/18 22:00 04/19/18 22:00 04/19/18 22:00 Intake and Output: 04/20/18 04/20/18 06:59 18:59 Intake Total 240 Balance 240 - Medications Medications: Current Medications Acetaminophen (Tylenol 325mg Tab) 650 mg PO Q6H PRN PRN Reason: Pain, moderate (4-7) Albuterol/Ipratropium (Duoneb 3 Mg/0.5 Mg (3 Ml) Ud) 3 ml IH Q4H PRN PRN Reason: Shortness of Breath Aspirin (Aspirin Chewable) 81 mg PO DAILY [facility] Azithromycin (Zithromax) 250 mg PO DAILY [facility] Stop: 04/23/18 10:01 Cefpodoxime Proxetil (Vantin) 200 mg PO Q12 [facility] Stop: 04/22/18 22:00 Folic Acid (Folic Acid) 1 mg PO DAILY [facility] Last Admin: 04/19/18 14:34 Dose: Not Given Heparin Sodium (Porcine) (Heparin) 5,000 units SC Q8 [facility]; Protocol Last Admin: 04/20/18 05:30 Dose: 5,000 units Hydromorphone HCl (Dilaudid) 4 mg PO Q8H PRN PRN Reason: Pain, severe (8-10) Last Admin: 04/19/18 14:26 Dose: 4 mg Lorazepam (Ativan) 1 mg IVP Q4H PRN; Protocol PRN Reason: Anxiety Last Admin: 04/20/18 05:30 Dose: 1 mg Multivitamins (Thera Tab) 1 tab PO DAILY [facility] Last Admin: 04/19/18 09:19 Dose: 1 tab Nicotine (Nicoderm Cq) 1 patch TD DAILY [facility] Last Admin: 04/19/18 09:15 Dose: 1 patch Oxycodone HCl (Oxycodone Immediate Release Tab) 30 mg PO Q6 PRN PRN Reason: Pain, moderate (4-7) Last Admin: 04/20/18 04:48 Dose: 30 mg Pantoprazole Sodium (Protonix Ec Tab) 40 mg PO 0600 [facility] Last Admin: 04/20/18 05:30 Dose: 40 mg Thiamine HCl (Vitamin B1 Tab) 100 mg PO DAILY [facility] Last Admin: 04/19/18 09:15 Dose: 100 mg - Labs Labs: 04/19/18 06:15 04/19/18 06:15 PT 13.1 SECONDS (9.4-12.5) H 04/17/18 15:30 INR 1.18 04/17/18 15:30 APTT 37.4 Seconds (26.9-38.3) 04/17/18 15:30 Attending/Attestation - Attestation I have personally seen and examined this patient.: Yes I have fully participated in the care of the patient.: Yes I have reviewed all pertinent clinical information, including history, physical exam and plan: Yes Notes (Text): Patient seen and examined by me with resident at 11:20 AM on 04/18/18 in the emergency room. Case including HPI, physical exam, and assessment and plan discussed with resident. Agree with above with following additions/corrections. Patient is a 52-year-old female past medical history significant for type 2 diabetes, cholelithiasis, asthma, COPD, GERD, and chronic opioid dependency presented to the emergency room with left-sided rib pain for 3 days. Patient states she is feeling ok. Has some tangential thoughts. States she wasn't feeling well at home so her kids told her to come to the hospital. Patient denies any chest pain or palpitations. No nausea, vomiting, or abdominal pain. No headaches or dizziness. No fevers or chills. No dysuria. Patient complains of left sided rib pain and is asking for pain medications. Physical exam: General: Awake and alert lying in bed in no acute distress HEENT: Normocephalic, atraumatic. Extraocular muscles intact, pupils equal and reactive, no scleral icterus. Oropharynx is pink and moist. No pharyngeal erythema or exudate apreciated. Neck is supple. Cardiovascular: Regular rhythm. Normal S1 and S2. No murmurs, rubs, or gallops appreciated Pulmonary: Normal respiratory effort. No rhonchi, rales, or wheezing appreciated. Gastrointestinal: Soft, nondistended. Nontender. Positive bowel sounds all 4 quadrants. No guarding. Musculoskeletal: Moves all extremities. No calf tenderness. No edema. Positive lateral left rib tendnerness. Central nervous system: AAOx3, CN 2-12 grossly intact. Dermatologic: Skin warm and dry. Assessment and plan: Patient is a 52-year-old female past medical history significant for type 2 diabetes, cholelithiasis, asthma, COPD, GERD, and chronic opioid dependency presented to the emergency room with left-sided rib pain for 3 days. 1. Left rib pain. ?Pneumonia. Continue zithromax and rocephin. Ribs xray per radiologist showed large left upper lobe bulla, left basilar atelectasis/infiltrate. Chest CT ordered. Patient afebrile. No leukoyctosis. Procalcitonin < 0.05. Continue home pain medications, BOILING HOUSE [employer] reviewed. Blood and sputum cultures pending. 2. COPD. Continue O2 via nasal cannula as needed. Continue nebulizer treatments. Patient counseled on tobacco cessation. 3. Chronic pain/opioid dependency. BOILING HOUSE HAND reviewed. Patient continued on home medic ations. Patient counseled at length on decreasing his medications and weaning off opioids. 4. [id number] type 2 diabetes. Diet controlled. Blood sugars well controlled. Continue to monitor. 5. Tobacco abuse. Counseled at length on tobacco cessation. 6. GI/DVT prophylaxis. Protonix/heparin 7. Patient is a full code. Case was discussed with the patient regarding current diagnosis and treatment plan. All questions answered.
[2018-04-18] MEDS ORDERED: oxyCODONE 30 mg Immediate Release Tab PO PRN (15:57)
[2018-04-18] MEDS ORDERED: oxyCODONE 30 mg Immediate Release Tab PO SCH (18:00)
[2018-04-18] MEDS: oxyCODONE 30 mg Immediate Release Tab PO PRN (18:23)
[2018-04-18] MEDS ORDERED: DiphenhydrAMINE 50 mg/ml Inj IVP STA (21:40)
[2018-04-19] MEDS: oxyCODONE 30 mg Immediate Release Tab PO PRN ×2 (05:32→17:26)
[2018-04-19] MEDS: Pantoprazole 40 mg EC Tab PO SCH (05:32)
[2018-04-19 07:29] LABS: HEMOGLOBIN 10.8 g/dL (12.0-16.0); MEAN CELL VOLUME 89.8 fl (80.0-105.0); MEAN CORPUSCULAR HGB CONC 32.2 g/dl (31.0-37.0); MEAN PLATELET VOLUME 10.8 fl (7.0-11.0); RBC 3.73 10^6/uL (3.5-6.1); RED CELL DISTRIBUTION WIDTH 14.3 % (11.5-14.5); WHITE BLOOD COUNT 6.4 10^3/uL (4.5-11.0)
[2018-04-19 07:46] LABS: ALB/GLOB RATIO 1.2 (1.1-1.8); ALBUMIN 4.2 g/dL (3.0-4.8); ALT/SGPT 23 U/L (7-56); AST/SGOT 27 U/L (14-36); BLOOD UREA NITROGEN 24 mg/dL (7-21); CALCIUM 9.5 mg/dL (8.4-10.5); GFR NON-AFRICAN AMERICAN > 60
[2018-04-19] MEDS: cefTRIAXone 1 gm 1 GM/100 ML BAG IVPB SCH (09:15)
[2018-04-19] MEDS: Azithromycin 250 MG in Sodium Chloride 0.9% 250 ML IVPB SCH (09:19)
[2018-04-19] MEDS: Multivitamin Therapeutic Tab PO SCH (09:19)
--- NOTE | 2018-04-19 16:08 | CP.PCM.PN ---
<Blu Motley - Last Filed: 04/19/18 16:19> Subjective - Date & Time of Evaluation Date of Evaluation: 04/19/18 Time of Evaluation: 06:30 - Subjective Subjective: Pt seen and examined. Per nursing, sputum cultures collected and sent to lab, pt was anxious and requesting Ativan, pt has been wandering around in the hallway, agitated and restless. Objective - Vital Signs/Intake and Output Vital Signs (last 24 hours): Temp Pulse Resp BP Pulse Ox 98.2 F 82 16 119/91 H 97 04/19/18 14:00 04/19/18 14:00 04/19/18 14:00 04/19/18 14:00 04/19/18 14:00 Intake and Output: 04/19/18 04/19/18 06:59 18:59 Intake Total 960 Balance 960 - Medications Medications: Current Medications Acetaminophen (Tylenol 325mg Tab) 650 mg PO Q6H PRN PRN Reason: Pain, moderate (4-7) Albuterol/Ipratropium (Duoneb 3 Mg/0.5 Mg (3 Ml) Ud) 3 ml IH Q4H PRN PRN Reason: Shortness of Breath Folic Acid (Folic Acid) 1 mg PO DAILY [facility] Last Admin: 04/19/18 14:34 Dose: Not Given Heparin Sodium (Porcine) (Heparin) 5,000 units SC Q8 [facility]; Protocol Last Admin: 04/19/18 14:33 Dose: Not Given Hydromorphone HCl (Dilaudid) 4 mg PO Q8H PRN PRN Reason: Pain, severe (8-10) Last Admin: 04/19/18 14:26 Dose: 4 mg Azithromycin 250 mg/ Sodium (Chloride) 250 mls @ 167 mls/hr IVPB DAILY [facility]; Protocol Last Admin: 04/19/18 09:19 Dose: 167 mls/hr Ceftriaxone Sodium (Rocephin 1 Gram Ivpb) 1 gm in 100 mls @ 100 mls/hr IVPB DAILY [facility]; Protocol Stop: 04/22/18 10:59 Last Admin: 04/19/18 09:15 Dose: 100 mls/hr Lorazepam (Ativan) 1 mg IVP Q4H PRN; Protocol PRN Reason: Anxiety Last Admin: 02/02/19 13:35 Dose: 1 mg Multivitamins (Thera Tab) 1 tab PO DAILY [facility] Last Admin: 04/19/18 09:19 Dose: 1 tab Nicotine (Nicoderm Cq) 1 patch TD DAILY [facility] Last Admin: 04/19/18 09:15 Dose: 1 patch Oxycodone HCl (Oxycodone Immediate Release Tab) 30 mg PO Q12 PRN PRN Reason: Pain, moderate (4-7) Last Admin: 04/19/18 05:32 Dose: 30 mg Pantoprazole Sodium (Protonix Ec Tab) 40 mg PO 0600 [facility] Last Admin: 04/19/18 05:32 Dose: 40 mg Thiamine HCl (Vitamin B1 Tab) 100 mg PO DAILY [facility] Last Admin: 04/19/18 09:15 Dose: 100 mg - Labs Labs: 04/19/18 06:15 04/19/18 06:15 PT 13.1 SECONDS (9.4-12.5) H 04/17/18 15:30 INR 1.18 04/17/18 15:30 APTT 37.4 Seconds (26.9-38.3) 04/17/18 15:30 - Constitutional Appears: No Acute Distress - Head Exam Head Exam: ATRAUMATIC, NORMOCEPHALIC - Eye Exam Eye Exam: EOMI - ENT Exam ENT Exam: Mucous Membranes Moist - Neck Exam Neck Exam: Full ROM - Respiratory Exam Respiratory Exam: Clear to Ausculation Bilateral, NORMAL BREATHING PATTERN. absent: Accessory Muscle Use, Respiratory Distress - Cardiovascular Exam Cardiovascular Exam: RRR, +S1, +S2. absent: Diastolic murmur, Murmur - GI/Abdominal Exam GI & Abdominal Exam: Soft, Normal Bowel Sounds - Extremities Exam Extremities Exam: Full ROM. absent: Calf Tenderness, Pedal Edema - Neurological Exam Neurological Exam: Alert, Awake, Oriented x3 - Psychiatric Exam Psychiatric exam: Normal Affect, Normal Mood - Skin Skin Exam: Dry, Intact, Warm Assessment and Plan - Assessment and Plan (Free Text) Assessment: Pt is a 52 yo female, with a PMH of DM II, asthma, COPD, GERD, CABG, chronic opiate dependence who presents to the ED complaining of left sided rib pain for the past 3 days. Plan: CAP, left sided rib pain - history of COPD requiring home O2 2L, asthma, duonebs prn - continue azithromycin and rocephin - blood culture, no growth after 24 hours - sputum culture, pending - CXR: no acute rib fractures. Large left upper lobe bulla. Left basilar inf iltrate. - CT Chest: no significant change in severe left lung pulse disease with a dominant roughly 13 centimeter bulla in the posterior aspect of the left upper lung zone tracking inferiorly. Superimposed emphysematous changes. Chronic Back Pain - chronic opiod dependence, monitor for signs of withdrawal - UDS POS opiates, POS benzo, EtOH level negative - diladid PO 4mg Q8 PRN - oxycodone 30mg PO Q12 DM - well controlled at this time, will monitor GERD - protonix Hx Tobacco Use Disorder - nicotine patch, counseled on smoking cessation Ppx, Diet - HHD - Heparin - protonix Pt seen, examined, assessment and plan discussed with Dr Kati Motley PGY1, Internal Medicine Resident <Kati Zhong R - Last Filed: 04/20/18 07:55> Objective - Vital Signs/Intake and Output Vital Signs (last 24 hours): Temp Pulse Resp BP Pulse Ox 98.5 F 76 20 138/90 98 04/19/18 22:00 04/19/18 22:00 04/19/18 22:00 04/19/18 22:00 04/19/18 22:00 Intake and Output: 04/20/18 04/20/18 06:59 18:59 Intake Total 240 Balance 240 - Medications Medications: Current Medications Acetaminophen (Tylenol 325mg Tab) 650 mg PO Q6H PRN PRN Reason: Pain, moderate (4-7) Albuterol/Ipratropium (Duoneb 3 Mg/0.5 Mg (3 Ml) Ud) 3 ml IH Q4H PRN PRN Reason: Shortness of Breath Aspirin (Aspirin Chewable) 81 mg PO DAILY [facility] Azithromycin (Zithromax) 250 mg PO DAILY [facility] Stop: 04/23/18 10:01 Cefpodoxime Proxetil (Vantin) 200 mg PO Q12 [facility] Stop: 04/22/18 22:00 Folic Acid (Folic Acid) 1 mg PO DAILY [facility] Last Admin: 04/19/18 14:34 Dose: Not Given Heparin Sodium (Porcine) (Heparin) 5,000 units SC Q8 [facility]; Protocol Last Admin: 04/20/18 05:30 Dose: 5,000 units Hydromorphone HCl (Dilaudid) 4 mg PO Q8H PRN PRN Reason: Pain, severe (8-10) Last Admin: 04/19/18 14:26 Dose: 4 mg Lorazepam (Ativan) 1 mg IVP Q4H PRN; Protocol PRN Reason: Anxiety Last Admin: 04/20/18 05:30 Dose: 1 mg Multivitamins (Thera Tab) 1 tab PO DAILY [facility] Last Admin: 04/19/18 09:19 Dose: 1 tab Nicotine (Nicoderm Cq) 1 patch TD DAILY [facility] Last Admin: 04/19/18 09:15 Dose: 1 patch Oxycodone HCl (Oxycodone Immediate Release Tab) 30 mg PO Q6 PRN PRN Reason: Pain, moderate (4-7) Last Admin: 04/20/18 04:48 Dose: 30 mg Pantoprazole Sodium (Protonix Ec Tab) 40 mg PO 0600 [facility] Last Admin: 04/20/18 05:30 Dose: 40 mg Thiamine HCl (Vitamin B1 Tab) 100 mg PO DAILY [facility] Last Admin: 04/19/18 09:15 Dose: 100 mg - Labs Labs: 04/19/18 06:15 04/19/18 06:15 PT 13.1 SECONDS (9.4-12.5) H 04/17/18 15:30 INR 1.18 04/17/18 15:30 APTT 37.4 Seconds (26.9-38.3) 04/17/18 15:30 Attending/Attestation - Attestation I have personally seen and examined this patient.: Yes I have fully participated in the care of the patient.: Yes I have reviewed all pertinent clinical information, including history, physical exam and plan: Yes Notes (Text): Patient seen and examined by me with resident at 10:45 AM on 04/19/18 in the emergency room. Case including HPI, physical exam, and assessment and plan discussed with resident. Agree with above with following additions/corrections. Patient is a 52-year-old female past medical history significant for type 2 diabetes, cholelithiasis, asthma, COPD, GERD, and chronic opioid dependency presented to the emergency room with left-sided rib pain for 3 days. Patient states she is feeling better. Still with some left sided rib pain. Still with tangential thoughts. Also appears to be confused. 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 States she saw staff in the emergency room doing drugs. Patient denies any chest pain or palpitations. No nausea, vomiting, or abdominal pain. No headaches or dizziness. No fevers or chills. No dysuria. Physical exam: General: Awake and alert lying in bed in no acute distress HEENT: Normocephalic, atraumatic. Extraocular muscles intact, pupils equal and reactive, no scleral icterus. Oropharynx is pink and moist. No pharyngeal erythema or exudate apreciated. Neck is supple. Cardiovascular: Regular rhythm. Normal S1 and S2. No murmurs, rubs, or gallops appreciated Pulmonary: Normal respiratory effort. No rhonchi, rales, or wheezing appreciated. Gastrointestinal: Soft, nondistended. Nontender. Positive bowel sounds all 4 quadrants. No guarding. Musculoskeletal: Moves all extremities. No calf tenderness. No edema. Positive lateral left rib tendnerness. Central nervous system: AAOx3, CN 2-12 grossly intact. Dermatologic: Skin warm and dry. Assessment and plan: Patient is a 52-year-old female past medical history significant for type 2 diabetes, cholelithiasis, asthma, COPD, GERD, and chronic opioid dependency presented to the emergency room with left-sided rib pain for 3 days. 1. Left rib pain. ?Pneumonia. Continue zithromax and rocephin. Ribs xray per radiologist showed large left upper lobe bulla, left basilar atelectasis/infiltrate. Chest CT per radiologist showed no significant change in severe left lung disease with predominantly 13 cm bulla in the posterior aspect of the left upper lung zone tracking inferiorly, superimposed emphysematous changes. Patient afebrile. No leukoyctosis. Procalcitonin < 0.05. Continue home pain medications, BODY SERV[employer] TEAM MEMBER reviewed. Blood and sputum cultures pending. 2. COPD. Continue O2 via nasal cannula as needed. Continue nebulizer treatments. Patient counseled on tobacco cessation. 3. Tangenital thoughts. Confusion. ?hallucinations. Psychiatrist consulted, follow up recommendations. 4. Chronic pain/opioid dependency. BODY SERVICE TEAM MEMBER reviewed. Patient continued on home medi cations. Patient counseled at length on decreasing his medications and weaning off opioids. 5. Mkz-hcitwtj-[id number] type 2 diabetes. Diet controlled. Blood sugars well controlled. Continue to monitor. 6. Tobacco abuse. Counseled at length on tobacco cessation. 7. GI/DVT prophylaxis. Protonix/heparin 8. Patient is a full code. Case was discussed with the patient regarding current diagnosis and treatment plan. All questions answered.
[2018-04-20] MEDS: oxyCODONE 30 mg Immediate Release Tab PO PRN ×3 (04:48→21:10)
[2018-04-20] MEDS: Pantoprazole 40 mg EC Tab PO SCH (05:30)
[2018-04-20 08:50] LABS: HEMOGLOBIN 11.1 g/dL (12.0-16.0); MEAN CORPUSCULAR HEMOGLOBIN 29.1 pg (25.0-35.0); MEAN CORPUSCULAR HGB CONC 32.6 g/dl (31.0-37.0); MEAN PLATELET VOLUME 10.5 fl (7.0-11.0); RBC 3.82 10^6/uL (3.5-6.1); RED CELL DISTRIBUTION WIDTH 14.1 % (11.5-14.5)
[2018-04-20 09:00] LABS: WHITE BLOOD COUNT 7.9 10^3/uL (4.5-11.0)
[2018-04-20] MEDS: Cefpodoxime (Vantin) 200 mg Tab PO SCH ×2 (09:06→23:53)
[2018-04-20] MEDS: Multivitamin Therapeutic Tab PO SCH (09:06)
[2018-04-20 09:12] LABS: ALB/GLOB RATIO 1.2 (1.1-1.8); ALBUMIN 4.2 g/dL (3.0-4.8); ALT/SGPT 10 U/L (7-56); AST/SGOT 21 U/L (14-36); BLOOD UREA NITROGEN 16 mg/dL (7-21); CALCIUM 9.2 mg/dL (8.4-10.5); GFR NON-AFRICAN AMERICAN > 60
--- NOTE | 2018-04-20 12:31 | CP.PCM.PN ---
<Blu Motley - Last Filed: 04/20/18 12:39> Subjective - Date & Time of Evaluation Date of Evaluation: 04/20/18 Time of Evaluation: 06:15 - Subjective Subjective: Pt seen and examined at bedside. Per nursing, pt given ativan for panic attack, medication was effective. Objective - Vital Signs/Intake and Output Vital Signs (last 24 hours): Temp Pulse Resp BP Pulse Ox 98.2 F 79 20 129/93 H 98 04/20/18 06:00 04/20/18 06:00 04/20/18 06:00 04/20/18 06:00 04/20/18 06:00 Intake and Output: 04/20/18 04/20/18 06:59 18:59 Intake Total 240 Balance 240 - Medications Medications: Current Medications Acetaminophen (Tylenol 325mg Tab) 650 mg PO Q6H PRN PRN Reason: Pain, moderate (4-7) Albuterol/Ipratropium (Duoneb 3 Mg/0.5 Mg (3 Ml) Ud) 3 ml IH Q4H PRN PRN Reason: Shortness of Breath Aspirin (Aspirin Chewable) 81 mg PO DAILY [facility] Last Admin: 04/20/18 09:06 Dose: 81 mg Azithromycin (Zithromax) 250 mg PO DAILY [facility] Stop: 04/23/18 10:01 Last Admin: 04/20/18 09:06 Dose: 250 mg Cefpodoxime Proxetil (Vantin) 200 mg PO Q12 [facility] Stop: 04/22/18 22:00 Last Admin: 04/20/18 09:06 Dose: 200 mg Escitalopram Oxalate (Lexapro) 10 mg PO [facility] Folic Acid (Folic Acid) 1 mg PO DAILY [facility] Last Admin: 04/20/18 09:06 Dose: 1 mg Heparin Sodium (Porcine) (Heparin) 5,000 units SC Q8 [facility]; Protocol Last Admin: 04/20/18 05:30 Dose: 5,000 units Hydromorphone HCl (Dilaudid) 4 mg PO Q8H PRN PRN Reason: Pain, severe (8-10) Last Admin: 04/19/18 14:26 Dose: 4 mg Lorazepam (Ativan) 1 mg IVP Q4H PRN; Protocol PRN Reason: Anxiety Last Admin: 04/20/18 09:06 Dose: 1 mg Multivitamins (Thera Tab) 1 tab PO DAILY [facility] Last Admin: 04/20/18 09:06 Dose: 1 tab Nicotine (Nicoderm Cq) 1 patch TD DAILY [facility] Last Admin: 04/20/18 09:08 Dose: 1 patch Oxycodone HCl (Oxycodone Immediate Release Tab) 30 mg PO Q6 PRN PRN Reason: Pain, moderate (4-7) Last Admin: 04/20/18 12:22 Dose: 30 mg Pantoprazole Sodium (Protonix Ec Tab) 40 mg PO 0600 [facility] Last Admin: 04/20/18 05:30 Dose: 40 mg Quetiapine Fumarate (Seroquel) 25 mg PO BID [facility]; Protocol Last Admin: 04/20/18 11:26 Dose: 25 mg Quetiapine Fumarate (Seroquel) 50 mg PO HS [facility] Thiamine HCl (Vitamin B1 Tab) 100 mg PO DAILY [facility] Last Admin: 04/20/18 09:06 Dose: 100 mg - Labs Labs: 04/20/18 08:30 04/20/18 08:30 PT 13.1 SECONDS (9.4-12.5) H 04/17/18 15:30 INR 1.18 04/17/18 15:30 APTT 37.4 Seconds (26.9-38.3) 04/17/18 15:30 - Constitutional Appears: No Acute Distress - Head Exam Head Exam: ATRAUMATIC, NORMOCEPHALIC - Eye Exam Eye Exam: EOMI - ENT Exam ENT Exam: Mucous Membranes Moist - Respiratory Exam Respiratory Exam: Clear to Ausculation Bilateral, NORMAL BREATHING PATTERN. absent: Accessory Muscle Use, Respiratory Distress - Cardiovascular Exam Cardiovascular Exam: RRR, +S1, +S2. absent: Diastolic murmur, Murmur - GI/Abdominal Exam GI & Abdominal Exam: Soft, Normal Bowel Sounds - Extremities Exam Extremities Exam: Full ROM, Pedal Edema. absent: Calf Tenderness, Tenderness - Neurological Exam Neurological Exam: Alert, Awake, Oriented x3 - Psychiatric Exam Psychiatric exam: Normal Affect, Normal Mood - Skin Skin Exam: Dry, Intact, Warm Assessment and Plan - Assessment and Plan (Free Text) Assessment: Pt is a 52 yo female, with a PMH of DM II, asthma, COPD, GERD, CABG, chronic opiate dependence who presents to the ED complaining of left sided rib pain for the past 3 days. Plan: CAP, left sided rib pain - history of COPD requiring home O2 2L, asthma, duonebs prn - continue azithromycin and vantin - blood culture, no growth after 48 hours - sputum culture, normal oral nita - CXR: no acute rib fractures. Large left upper lobe bulla. Left basilar infiltrate. - CT Chest: no significant change in severe left lung pulse disease with a dominant roughly 13 centimeter bulla in the posterior aspect of the left upper lung zone tracking inferiorly. Superimposed emphysematous changes. Disorganized Thoughts - Psyc consulted, Dr Carranza Chronic Back Pain - chronic opiod dependence, monitor for signs of withdrawal - UDS POS opiates, POS benzo, EtOH level negative - diladid PO 4mg Q8 PRN - oxycodone 30mg PO Q6 DM - well controlled at this time, will monitor GERD - protonix Hx Tobacco Use Disorder - nicotine patch, counseled on smoking cessation Ppx, Diet - HHD - Heparin - protonix Pt seen, examined, assessment and plan discussed with Dr Kati Motley PGY1, Internal Medicine Resident <Kati Zhong R - Last Filed: 04/21/18 15:55> Objective - Vital Signs/Intake and Output Vital Signs (last 24 hours): Temp Pulse Resp BP Pulse Ox 98.4 F 75 20 108/76 98 04/21/18 14:00 04/21/18 14:00 04/21/18 14:00 04/21/18 14:00 04/21/18 14:00 Intake and Output: 04/21/18 04/21/18 06:59 18:59 Intake Total 240 720 Balance 240 720 - Medications Medications: Current Medications Acetaminophen (Tylenol 325mg Tab) 650 mg PO Q6H PRN PRN Reason: Pain, moderate (4-7) Albuterol/Ipratropium (Duoneb 3 Mg/0.5 Mg (3 Ml) Ud) 3 ml IH Q4H PRN PRN Reason: Shortness of Breath Last Admin: 04/21/18 08:44 Dose: 3 ml Aspirin (Aspirin Chewable) 81 mg PO DAILY [facility] Last Admin: 04/21/18 09:18 Dose: 81 mg Azithromycin (Zithromax) 250 mg PO DAILY [facility] Stop: 04/23/18 10:01 Last Admin: 04/21/18 09:19 Dose: 250 mg Cefpodoxime Proxetil (Vantin) 200 mg PO Q12 [facility] Stop: 04/22/18 22:00 Last Admin: 04/21/18 09:18 Dose: 200 mg Escitalopram Oxalate (Lexapro) 10 mg PO HS [facility] Last Admin: 04/20/18 23:55 Dose: 10 mg Folic Acid (Folic Acid) 1 mg PO DAILY [facility] Last Admin: 04/21/18 09:18 Dose: 1 mg Heparin Sodium (Porcine) (Heparin) 5,000 units SC Q8 [facility]; Protocol Last Admin: 04/21/18 06:18 Dose: 5,000 units Hydromorphone HCl (Dilaudid) 4 mg PO Q8H PRN PRN Reason: Pain, severe (8-10) Last Admin: 04/21/18 00:37 Dose: 4 mg Lorazepam (Ativan) 1 mg IVP Q4H PRN; Protocol PRN Reason: Anxiety Last Admin: 04/21/18 11:27 Dose: 1 mg Multivitamins (Thera Tab) 1 tab PO DAILY [facility] Last Admin: 04/21/18 09:18 Dose: 1 tab Nicotine (Nicoderm Cq) 1 patch TD DAILY [facility] Last Admin: 04/21/18 09:19 Dose: 1 patch Oxycodone HCl (Oxycodone Immediate Release Tab) 30 mg PO Q6 PRN PRN Reason: Pain, moderate (4-7) Last Admin: 04/21/18 09:20 Dose: 30 mg Pantoprazole Sodium (Protonix Ec Tab) 40 mg PO 0600 [facility] Last Admin: 04/21/18 06:18 Dose: 40 mg Quetiapine Fumarate (Seroquel) 25 mg PO BID [facility]; Protocol Last Admin: 04/21/18 09:19 Dose: 25 mg Quetiapine Fumarate (Seroquel) 50 mg PO HS [facility] Last Admin: 04/20/18 23:54 Dose: 50 mg Thiamine HCl (Vitamin B1 Tab) 100 mg PO DAILY [facility] Last Admin: 04/20/18 09:06 Dose: 100 mg - Labs Labs: 04/21/18 07:30 04/21/18 07:30 PT 13.1 SECONDS (9.4-12.5) H 04/17/18 15:30 INR 1.18 04/17/18 15:30 APTT 37.4 Seconds (26.9-38.3) 04/17/18 15:30 Attending/Attestation - Attestation I have personally seen and examined this patient.: Yes I have fully participated in the care of the patient.: Yes I have reviewed all pertinent clinical information, including history, physical exam and plan: Yes Notes (Text): Patient seen and examined by me with resident at 10:20 AM on 04/20/18. Case inc luding HPI, physical exam, and assessment and plan discussed with resident. Agree with above with following additions/corrections. Patient is a 52-year-old female past medical history significant for type 2 diabetes, cholelithiasis, asthma, COPD, GERD, and chronic opioid dependency presented to the emergency room with left-sided rib pain for 3 days. Patient states she is feeling ok. Patient is asking for a nebulizer treatment. States she is still having left sided rib pain. Still with tangential thoughts. Patient denies any chest pain or palpitations. No nausea, vomiting, or abdominal pain. No headaches or dizziness. No fevers or chills. No dysuria. Physical exam: General: Awake and alert lying in bed in no acute distress HEENT: Normocephalic, atraumatic. Extraocular muscles intact, pupils equal and reactive, no scleral icterus. Oropharynx is pink and moist. No pharyngeal erythema or exudate appreciated. Neck is supple. Cardiovascular: Regular rhythm. Normal S1 and S2. No murmurs, rubs, or gallops appreciated Pulmonary: Normal respiratory effort.No rhonchi, rales, or wheezing ulises reciated. Gastrointestinal: Soft, nondistended. Nontender. Positive bowel sounds all 4 quadrants. No guarding. Musculoskeletal: Moves all extremities. No calf tenderness. No edema. Positive lateral left rib tenderness. Central nervous system: AAOx3 Dermatologic: Skin warm and dry. Assessment and plan: Patient is a 52-year-old female past medical history significant for type 2 diabetes, cholelithiasis, asthma, COPD, GERD, and chronic opioid dependency presented to the emergency room with left-sided rib pain for 3 days. 1. Left rib pain. ?Pneumonia. Continue Vantin and Zithromax. Ribs xray per radiologist showed large left upper lobe bulla, left basilar atelectasis/infiltrate. Chest CT per radiologist showed no significant change in severe left lung disease with predominantly 13 cm bulla inthe posterior aspect of the left upper lung zone tracking inferiorly, superimposed emphysematous changes. Patient afebrile. No leukocytosis. Procalcitonin < 0.05. Continue home pain medications, [employer]SEM[employer] reviewed. Blood cultures with no growth. Sputum culture with normal oral nita. 2. COPD. Continue O2 via nasal cannula as needed. Continue nebulizer treatments. Patient counseled on tobacco cessation. 3. Tangenital thoughts. Confusion. ?hallucinations. Psychiatrist following, recommendations appreciated. Started on Seroquel and Lexapro 4. Chronic pain/opioid dependency. [employer]SEM[employer] reviewed. Patient continued on home medications. Patient counseled at length on decreasing her medications and weaning off opioids. 5. [id number] type 2 diabetes. Diet controlled. Blood sugars well controlled. Continue to monitor. 6. Tobacco abuse. Counseled at length on tobacco cessation. 7. GI/DVT prophylaxis. Protonix/heparin 8. Patient is a full code. Case was discussed with the patient regarding current diagnosis and treatment plan. All questions answered.
[2018-04-20] MEDS: Albuterol-Ipratrop 3 mg / 0.5 (3 ml) UD IH PRN (14:30)
--- NOTE | 2018-04-20 21:56 | CON ---
DATE: 04/20/2018 HISTORY OF PRESENT ILLNESS: The patient is a 52-year-old female with a history of depression as well as hallucinations, likely schizoaffective disorder, currently in treatment with at [facility] and being prescribed Lexapro 10 mg and Seroquel 100 at a.m. and at bedtime, who was admitted to the medical floor to treat pneumonia as well as for opiate dependency. Psychiatry was called due to the patient's anxiety and possible psychosis on the unit. Currently, the patient has been restless, confused, aggressive, unpredictable. I met with her at bedside today and the patient reports that she is a little depressed and has been hallucinating and having panic attacks. She saw her grandmother in front of her last night which was very distressful for her. Denies any auditory hallucinations. She is aware of where she is, the month and current year. She is prescribed Lexapro and Seroquel by ; however, it is unclear whether she is actually compliant with these medications, and she does not known when her last dose of these medications was. She is not suicidal; she is not homicidal. She is not actually paranoid, but she is emotional, she is labile; and she does not appear to be responding to internal stimuli right now. Insight and judgment are considered to be impaired at this time. RELEVANT PSYCHIATRIC MEDICATIONS: The patient was not started on any psychiatric medications on the unit except for Ativan 1 mg every 4 hours p.r.n. for anxiety. PAST PSYCHIATRIC HISTORY: The patient is in outpatient treatment with who has prescribed Lexapro 10 mg, Seroquel 100 at a.m. and at bedtime, was admitted to psychiatric hospital many many years ago, the patient indicates 30 years ago when last time she had a suicide attempt. SOCIAL HISTORY: The patient reports that she has two college aged children, who need her. She is never suicidal. She lives with her children's father, been with him for 23 years. She is unemployed. She denies any drug or alcohol issues. She contradicts the H and P provided during admissions. IMPRESSION: Schizoaffective disorder by history, anxiety disorder, panic disorder, rule out opiate dependency but the patient denies. RECOMMENDATIONS: I will start Lexapro 10 mg at bedtime for the patient's depression, Seroquel 25 mg b.i.d. and 50 mg at bedtime for her disorganization, confusion, and hallucinations. Medical team can continue to treat her opiate dependency they suspected. Psychiatry will follow up with the patient in the a.m. on 04/21/2018. Speedy Carranza MD
[2018-04-20 23:03] VITALS: RESP 20
[2018-04-21] MEDS: Pantoprazole 40 mg EC Tab PO SCH (06:18)
[2018-04-21 07:58] LABS: BASO # 0.03 K/mm3 (0.0-2.0); BASO % 0.5 % (0.0-3.0); EOS # 0.2 (0.0-0.7); EOS % 2.9 % (1.5-5.0); HEMOGLOBIN 10.7 g/dL (12.0-16.0); LYMPH # 3.3 (1.2-3.4); LYMPH % 52.7 % (22.0-35.0); MEAN CELL VOLUME 89.7 fl (80.0-105.0); MEAN CORPUSCULAR HEMOGLOBIN 29.1 pg (25.0-35.0); MEAN CORPUSCULAR HGB CONC 32.4 g/dl (31.0-37.0); MEAN PLATELET VOLUME 9.9 fl (7.0-11.0); MONO # 0.5 (0.1-0.6); MONO % 8.2 % (1.0-6.0); RBC 3.68 10^6/uL (3.5-6.1); RED CELL DISTRIBUTION WIDTH 13.9 % (11.5-14.5); WHITE BLOOD COUNT 6.2 10^3/uL (4.5-11.0)
[2018-04-21 08:09] LABS: ALB/GLOB RATIO 1.2 (1.1-1.8); ALBUMIN 3.9 g/dL (3.0-4.8); ALT/SGPT 10 U/L (7-56); AST/SGOT 19 U/L (14-36); BLOOD UREA NITROGEN 17 mg/dL (7-21); CALCIUM 9.1 mg/dL (8.4-10.5); GFR NON-AFRICAN AMERICAN > 60
[2018-04-21] MEDS: Albuterol-Ipratrop 3 mg / 0.5 (3 ml) UD IH PRN (08:44)
[2018-04-21] MEDS: Cefpodoxime (Vantin) 200 mg Tab PO SCH (09:18)
[2018-04-21] MEDS: Multivitamin Therapeutic Tab PO SCH (09:18)
[2018-04-21] MEDS: oxyCODONE 30 mg Immediate Release Tab PO PRN (09:20)
--- NOTE | 2018-04-21 12:48 | PN ---
DATE: 04/21/2018 SUBJECTIVE: The patient is 52-year-old female with a history of mood spectrum disorder with psychosis. The patient is followed up at [facility]. The patient is seeing nurse practitioner, Gianfranco Dill. The patient was on Lexapro and Seroquel. The patient was admitted to the medical site for respiratory distress and possible pneumonia and opioid dependency. The patient was seen by Dr. Carranza over the weekend. This medical underwriter is taking over. The patient was seen and examined. The patient presented to be alert. The patient reported that initially she came to the hospital for anxiety. The patient reported that she was very anxious because of the cold weather and the patient is oxygen dependent. The patient was feeling very anxious and reported that she was afraid that power will get off and she will be not able to have her oxygen. The patient also reported that she has animals at home and she was concerned about them. The patient was made statement such as "probably I said myself up for this situation because I was over thinking about cold." At present moment, the patient reported that she feels much better. The patient denied feeling anxious. The patient reported that she is concerned about her animals, she wants to go back home. The patient reported that she does not feel depressed. She does not feel hopeless or helpless. The patient denied any thoughts of killing herself or others. At the same time, the patient was open to the option for medication adjustment which the patient feels that this is not helping her now. This medical underwriter suggested to follow up with her outpatient provider and discuss treatment options in case if she would not feel better. This medical underwriter advised to bring herself back to the hospital for admission and medication adjustment. The patient verbalized understanding. Reviewing Dr. Carranza's note, the patient never said that she is suicidal or homicidal or the patient did not present to be confused. OBJECTIVE: VITAL SIGNS: Reviewed. Temperature 97.6, blood pressure 94/57, respiration 20 and oxygen saturation is 100. MEDICATIONS: Reviewed. The patient is on Tylenol, DuoNeb, aspirin, Zithromax, Vantin, Lexapro 10 mg at the nighttime, folic acid, heparin, Dilaudid, Ativan 1 mg IV push every 4 hours as needed, multivitamins, Nicoderm, oxycodone, Protonix, Seroquel 25 mg twice a day and 50 mg at the nighttime and thiamine. LABORATORY DATA: Reviewed. Most recent was from today. Chemistry reviewed. Urinalysis reviewed. Toxicology reviewed. Benzodiazepines and opioids positive, but the patient was prescribed those medication. MENTAL STATUS EXAMINATION: The patient appears to be alert and oriented, pleasant, cooperative, mildly anxious, upper extremity tremor is much better to compare with description of the medical team and the patient herself. Mood described "I feel better." Affect was more reactive, mood congruent. Thought process seems to be coherent and goal directed. Thought content, the patient denied visual, auditory, tactile hallucinations. Denied paranoid ideation. Denied thoughts of harming herself or others. Denied intent or plan. Insight and judgment seems to be improving. Impulses are well controlled. IMPRESSION: Rule out anxiety due to general medical condition as per history, the patient has history of anxiety and depression and possible opioid addiction, but this is medical call. PLAN: This medical underwriter offered admission for medication adjustment because the patient said that her current medication set is not helping her that much, but the patient declined that offer. The patient might benefit from admission, but the patient is not in any imminent danger to self or others. The patient has appointment with her nurse practitioner at [facility]. The patient was educated about the plan if symptoms will persist or if the patient requires further evaluation, stabilization to bring herself back to the hospital. The patient was appreciative and willing to do so. Case discussed with medical team, Dr. Hernandes. This medical underwriter will sign off. Should you have any questions give me a call back. Thank you very much for letting me to participate in the care of your patient. Sigrid Cortez MD
[2018-04-21 14:57] VITALS: BP 108/76; PULSE 75; TEMP 98.4; O2SAT 98
--- NOTE | 2018-04-21 18:46 | CP.PCM.DIS ---
<Blu Motleyron - Last Filed: 04/21/18 18:49> Provider - Provider Date of Admission: 04/17/18 19:42 Attending physician: Albaro Hernandes MD Consults: 04/19/18 11:44 Physician Consult Routine Comment: Consulting Provider: Speedy Carranza Consulting Physician: Speedy Carranza Reason for Consult: exhibiting possible psychotic behavior Additional Comments: Time Spent in preparation of Discharge (in minutes): 45 Diagnosis - Discharge Diagnosis (1) Rib pain Status: Acute Priority: High (2) Chronic back pain Status: Chronic Priority: High (3) Diabetes Status: Chronic Priority: High (4) PNA (pneumonia) Status: Acute Priority: High (5) GERD (gastroesophageal reflux disease) Status: Chronic Priority: High Hospital Course - Lab Results Lab Results: Micro Results 04/19/18 06:20 Sputum Gram Stain - Final 04/19/18 06:20 Sputum Sputum Culture - Final NORMAL ORAL NITA 04/18/18 06:40 Blood Blood Culture - Preliminary NO GROWTH AFTER 3 DAYS 04/18/18 07:15 Blood Blood Culture - Preliminary NO GROWTH AFTER 3 DAYS Most Recent Lab Values WBC 6.2 10^3/uL (4.5-11.0) D 04/21/18 07:30 RBC 3.68 10^6/uL (3.5-6.1) 04/21/18 07:30 Hgb 10.7 g/dL (12.0-16.0) L 04/21/18 07:30 Hct 33.0 % (36.0-48.0) L 04/21/18 07:30 MCV 89.7 fl (80.0-105.0) 04/21/18 07:30 MCH 29.1 pg (25.0-35.0) 04/21/18 07:30 MCHC 32.4 g/dl (31.0-37.0) 04/21/18 07:30 RDW 13.9 % (11.5-14.5) 04/21/18 07:30 Plt Count 212 10^3/uL (120.0-450.0) 04/21/18 07:30 MPV 9.9 fl (7.0-11.0) 04/21/18 07:30 Neut % (Auto) 35.7 % (50.0-68.0) L 04/21/18 07:30 Lymph % (Auto) 52.7 % (22.0-35.0) H 04/21/18 07:30 [place] % (Auto) 8.2 % (1.0-6.0) H 04/21/18 07:30 Eos % (Auto) 2.9 % (1.5-5.0) 04/21/18 07:30 Baso % (Auto) 0.5 % (0.0-3.0) 04/21/18 07:30 Lymph # (Auto) 3.3 (1.2-3.4) 04/21/18 07:30 [place] # (Auto) 0.5 (0.1-0.6) 04/21/18 07:30 Eos # (Auto) 0.2 (0.0-0.7) 04/21/18 07:30 Baso # (Auto) 0.03 K/mm3 (0.0-2.0) 04/21/18 07:30 Absolute Neuts (auto) 2.21 (1.4-6.5) 04/21/18 07:30 PT 13.1 SECONDS (9.4-12.5) H 04/17/18 15:30 INR 1.18 04/17/18 15:30 APTT 37.4 Seconds (26.9-38.3) 04/17/18 15:30 pO2 230 mm/Hg (30-55) H 04/17/18 15:40 VBG pH 7.44 (7.32-7.43) H 04/17/18 15:40 VBG pCO2 46.0 (40-60) 04/17/18 15:40 VBG HCO3 31.2 mmol/l (21-28) H 04/17/18 15:40 VBG Total CO2 32.6 mmol.L (22-28) H 04/17/18 15:40 VBG O2 Sat (Calc) 100.1 % (40-65) H 04/17/18 15:40 VBG Base Excess 6.1 mmol/L (0.0-2.0) H 04/17/18 15:40 VBG Potassium 3.7 mmol/L (3.6-5.2) 04/17/18 15:40 Sodium 142.0 mmol/L (132-148) 04/17/18 15:40 Chloride 107.0 mmol/L (98-107) 04/17/18 15:40 Glucose 98 mg/dl (65-105) 04/17/18 15:40 Lactate 1.1 mmol/L (0.7-2.1) 04/17/18 15:40 FiO2 21.0 % 04/17/18 15:40 Sodium 139 mmol/L (132-148) 04/21/18 07:30 Potassium 4.0 mmol/L (3.6-5.0) 04/21/18 07:30 Chloride 106 mmol/L (98-107) 04/21/18 07:30 Carbon Dioxide 30 mmol/L (21-33) 04/21/18 07:30 Anion Gap 7 (10-20) L 04/21/18 07:30 BUN 17 mg/dL (7-21) 04/21/18 07:30 Creatinine 0.7 mg/dl (0.7-1.2) 04/21/18 07:30 Est GFR ( Amer) > 60 04/21/18 07:30 Est GFR (Non-Af Amer) > 60 04/21/18 07:30 POC Glucose (mg/dL) 146 mg/dL (65-110) H 04/21/18 11:17 Random Glucose 109 mg/dL (70-110) 04/21/18 07:30 Calcium 9.1 mg/dL (8.4-10.5) 04/21/18 07:30 Magnesium 1.8 mg/dL (1.7-2.2) 04/17/18 15:30 Total Bilirubin 0.4 mg/dL (0.2-1.3) 04/21/18 07:30 AST 19 U/L (14-36) 04/21/18 07:30 ALT 10 U/L (7-56) 04/21/18 07:30 Alkaline Phosphatase 86 U/L (38-126) 04/21/18 07:30 Troponin I < 0.01 ng/mL 04/17/18 15:30 NT-Pro-B Natriuret Pep 510 pg/mL (0-450) H 04/17/18 15:30 Total Protein 7.0 g/dL (5.8-8.3) 04/21/18 07:30 Albumin 3.9 g/dL (3.0-4.8) 04/21/18 07:30 Globulin 3.1 gm/dL 04/21/18 07:30 Albumin/Globulin Ratio 1.2 (1.1-1.8) 04/21/18 07:30 Procalcitonin < 0.05 NG/ML (0.19-0.49) L 04/18/18 07:30 Venous Blood Potassium 3.7 mmol/L (3.6-5.2) 04/17/18 15:40 Urine Color Yellow (YELLOW) 04/17/18 15:48 Urine Appearance Clear (CLEAR) 04/17/18 15:48 Urine pH 7.0 (4.7-8.0) 04/17/18 15:48 Ur Specific [place] 1.020 (1.005-1.035) 04/17/18 15:48 Urine Protein 30 mg/dL (<30 mg/dL) H 04/17/18 15:48 Urine Glucose (UA) Negative mg/dL (NEGATIVE) 04/17/18 15:48 Urine Ketones Trace mg/dL (NEGATIVE) H 04/17/18 15:48 Urine Blood Trace-intact (NEGATIVE) H 04/17/18 15:48 Urine Nitrate Negative (NEGATIVE) 04/17/18 15:48 Urine Bilirubin Negative (NEGATIVE) 04/17/18 15:48 Urine Urobilinogen 0.2 E.U./dL (<1 E.U./dL) 04/17/18 15:48 Ur Leukocyte Esterase Negative Jett/uL (NEGATIVE) 04/17/18 15:48 Urine RBC 10 - 15 /hpf (0-2) H 04/17/18 15:48 Urine WBC 2 - 5 /hpf (0-6) 04/17/18 15:48 Ur Epithelial Cells 3 - 4 /hpf (0-5) 04/17/18 15:48 Urine Opiates Screen Positive (NEGATIVE) H 04/17/18 15:50 Urine Methadone Screen Negative (NEGATIVE) 04/17/18 15:50 Ur Barbiturates Screen Negative (NEGATIVE) 04/17/18 15:50 Ur Phencyclidine Scrn Negative (NEGATIVE) 04/17/18 15:50 Ur Amphetamines Screen Negative (NEGATIVE) 04/17/18 15:50 U Benzodiazepines Scrn Positive (NEGATIVE) H 04/17/18 15:50 U Oth Cocaine Metabols Negative (NEGATIVE) 04/17/18 15:50 U Cannabinoids Screen Negative (NEGATIVE) 04/17/18 15:50 Alcohol, Quantitative < 10 mg/dL (0-10) 04/17/18 23:10 - Hospital Course Hospital Course: Hospitalization Pt is a 52 yo female, whose PMH includes DM, cholelithiasis, asthma, COPD, GERD, CABG, Chronic Opiate Dependence who presents to the ED complaining of left sided rib pain for the past 3 days. Patient states she had an associated fall about 2 weeks ago. Patient denies taking any recreational drugs. She says she does drink a lot of coffee, almost 5 cups a day. She has no cough, fever, chills, chest pain, shortness of breath, abdominal pain, n/v/d. Patient is alert and oriented however she goes off on tangents during interview. She is not a reliable historian. Patient does mention that she goes to a pain management doctor. She says that she does not drink alcohol. Discharge Seen in the hospital for your rib pain. Imaging showed a possible pneumonia, which you have been treated for. Given prescriptions for a multivitamin, thiamine, and folic acid. Please resume all home medications as previously prescribed. Please follow up with primary doctor (Dr. Rivera) within 3-5 days. If you have new concerning or worsening symptoms, please present to the nearest Emergency Department. - Date & Time of H&P Date of H&P: 04/21/18 Time of H&P: 07:30 Discharge Exam - Head Exam Head Exam: ATRAUMATIC, NORMOCEPHALIC - Eye Exam Eye Exam: EOMI - ENT Exam ENT Exam: Mucous Membranes Moist - Respiratory Exam Respiratory Exam: NORMAL BREATHING PATTERN, UNREMARKABLE. absent: Accessory Muscle Use, Wheezes, Respiratory Distress - Cardiovascular Exam Cardiovascular Exam: +S1, +S2. absent: Diastolic murmur, Systolic Murmur - GI/Abdominal Exam GI & Abdominal Exam: Normal Bowel Sounds, Soft, Unremarkable. absent: Tenderness - Extremities Exam Extremities exam: full ROM - Neurological Exam Neurological exam: Alert, Oriented x3 - Psychiatric Exam Psychiatric exam: Normal Affect, Normal Mood - Skin Skin Exam: Dry, Intact, Warm Discharge Plan - Discharge Medications Prescriptions: Azithromycin 250 mg PO DAILY #2 tablet Cefpodoxime [Vantin] 200 mg PO BID #3 tab Folic Acid 1 mg PO DAILY #30 tab Multivitamin Therapeutic Tab [Thera Tab] 1 tab PO DAILY #30 tab Thiamine [Vitamin B1 Tab] 100 mg PO DAILY #30 tab - Follow Up Plan Condition: IMPROVED Disposition: HOME/ ROUTINE Instructions: Pneumonia, Adult (DC), Pneumococcal Conjugate Vaccine (10- Valent), Quitting Smoking, Panic Disorder (DC), Flu Vaccine Additional Instructions: You were seen in the hospital for your rib pain. Imaging showed a possible pneumonia, which you have been treated for. You were given prescriptions for a multivitamin, thiamine, and folic acid. P lease fill and take as prescribed. Please resume all home medications as previously prescribed. Please follow up with your primary doctor (Dr. Rivera) within 3-5 days. If you have new concerning or worsening symptoms, please present to the nearest Emergency Department. <Albaro Hernandes - Last Filed: 04/22/18 07:50> Provider - Provider Date of Admission: 04/17/18 19:42 Attending physician: Albaro Hernandes MD Consults: 04/19/18 11:44 Physician Consult Routine Comment: Consulting Provider: Speedy Carranza Consulting Physician: Speedy Carranza Reason for Consult: exhibiting possible psychotic behavior Additional Comments: Hospital Course - Lab Results Lab Results: Micro Results 04/18/18 06:40 Blood Blood Culture - Preliminary NO GROWTH AFTER 4 DAYS 04/18/18 07:15 Blood Blood Culture - Preliminary NO GROWTH AFTER 4 DAYS 04/19/18 06:20 Sputum Gram Stain - Final 04/19/18 06:20 Sputum Sputum Culture - Final NORMAL ORAL NITA Most Recent Lab Values WBC 6.2 10^3/uL (4.5-11.0) D 04/21/18 07:30 RBC 3.68 10^6/uL (3.5-6.1) 04/21/18 07:30 Hgb 10.7 g/dL (12.0-16.0) L 04/21/18 07:30 Hct 33.0 % (36.0-48.0) L 04/21/18 07:30 MCV 89.7 fl (80.0-105.0) 04/21/18 07:30 MCH 29.1 pg (25.0-35.0) 04/21/18 07:30 MCHC 32.4 g/dl (31.0-37.0) 04/21/18 07:30 RDW 13.9 % (11.5-14.5) 04/21/18 07:30 Plt Count 212 10^3/uL (120.0-450.0) 04/21/18 07:30 MPV 9.9 fl (7.0-11.0) 04/21/18 07:30 Neut % (Auto) 35.7 % (50.0-68.0) L 04/21/18 07:30 Lymph % (Auto) 52.7 % (22.0-35.0) H 04/21/18 07:30 [place] % (Auto) 8.2 % (1.0-6.0) H 04/21/18 07:30 Eos % (Auto) 2.9 % (1.5-5.0) 04/21/18 07:30 Baso % (Auto) 0.5 % (0.0-3.0) 04/21/18 07:30 Lymph # (Auto) 3.3 (1.2-3.4) 04/21/18 07:30 [place] # (Auto) 0.5 (0.1-0.6) 04/21/18 07:30 Eos # (Auto) 0.2 (0.0-0.7) 04/21/18 07:30 Baso # (Auto) 0.03 K/mm3 (0.0-2.0) 04/21/18 07:30 Absolute Neuts (auto) 2.21 (1.4-6.5) 04/21/18 07:30 PT 13.1 SECONDS (9.4-12.5) H 04/17/18 15:30 INR 1.18 04/17/18 15:30 APTT 37.4 Seconds (26.9-38.3) 04/17/18 15:30 pO2 230 mm/Hg (30-55) H 04/17/18 15:40 VBG pH 7.44 (7.32-7.43) H 04/17/18 15:40 VBG pCO2 46.0 (40-60) 04/17/18 15:40 VBG HCO3 31.2 mmol/l (21-28) H 04/17/18 15:40 VBG Total CO2 32.6 mmol.L (22-28) H 04/17/18 15:40 VBG O2 Sat (Calc) 100.1 % (40-65) H 04/17/18 15:40 VBG Base Excess 6.1 mmol/L (0.0-2.0) H 04/17/18 15:40 VBG Potassium 3.7 mmol/L (3.6-5.2) 04/17/18 15:40 Sodium 142.0 mmol/L (132-148) 04/17/18 15:40 Chloride 107.0 mmol/L (98-107) 04/17/18 15:40 Glucose 98 mg/dl (65-105) 04/17/18 15:40 Lactate 1.1 mmol/L (0.7-2.1) 04/17/18 15:40 FiO2 21.0 % 04/17/18 15:40 Sodium 139 mmol/L (132-148) 04/21/18 07:30 Potassium 4.0 mmol/L (3.6-5.0) 04/21/18 07:30 Chloride 106 mmol/L (98-107) 04/21/18 07:30 Carbon Dioxide 30 mmol/L (21-33) 04/21/18 07:30 Anion Gap 7 (10-20) L 04/21/18 07:30 BUN 17 mg/dL (7-21) 04/21/18 07:30 Creatinine 0.7 mg/dl (0.7-1.2) 04/21/18 07:30 Est GFR ( Amer) > 60 04/21/18 07:30 Est GFR (Non-Af Amer) > 60 04/21/18 07:30 POC Glucose (mg/dL) 146 mg/dL (65-110) H 04/21/18 11:17 Random Glucose 109 mg/dL (70-110) 04/21/18 07:30 Calcium 9.1 mg/dL (8.4-10.5) 04/21/18 07:30 Magnesium 1.8 mg/dL (1.7-2.2) 04/17/18 15:30 Total Bilirubin 0.4 mg/dL (0.2-1.3) 04/21/18 07:30 AST 19 U/L (14-36) 04/21/18 07:30 ALT 10 U/L (7-56) 04/21/18 07:30 Alkaline Phosphatase 86 U/L (38-126) 04/21/18 07:30 Troponin I < 0.01 ng/mL 04/17/18 15:30 NT-Pro-B Natriuret Pep 510 pg/mL (0-450) H 04/17/18 15:30 Total Protein 7.0 g/dL (5.8-8.3) 04/21/18 07:30 Albumin 3.9 g/dL (3.0-4.8) 04/21/18 07:30 Globulin 3.1 gm/dL 04/21/18 07:30 Albumin/Globulin Ratio 1.2 (1.1-1.8) 04/21/18 07:30 Procalcitonin < 0.05 NG/ML (0.19-0.49) L 04/18/18 07:30 Venous Blood Potassium 3.7 mmol/L (3.6-5.2) 04/17/18 15:40 Urine Color Yellow (YELLOW) 04/17/18 15:48 Urine Appearance Clear (CLEAR) 04/17/18 15:48 Urine pH 7.0 (4.7-8.0) 04/17/18 15:48 Ur Specific [place] 1.020 (1.005-1.035) 04/17/18 15:48 Urine Protein 30 mg/dL (<30 mg/dL) H 04/17/18 15:48 Urine Glucose (UA) Negative mg/dL (NEGATIVE) 04/17/18 15:48 Urine Ketones Trace mg/dL (NEGATIVE) H 04/17/18 15:48 Urine Blood Trace-intact (NEGATIVE) H 04/17/18 15:48 Urine Nitrate Negative (NEGATIVE) 04/17/18 15:48 Urine Bilirubin Negative (NEGATIVE) 04/17/18 15:48 Urine Urobilinogen 0.2 E.U./dL (<1 E.U./dL) 04/17/18 15:48 Ur Leukocyte Esterase Negative Jett/uL (NEGATIVE) 04/17/18 15:48 Urine RBC 10 - 15 /hpf (0-2) H 04/17/18 15:48 Urine WBC 2 - 5 /hpf (0-6) 04/17/18 15:48 Ur Epithelial Cells 3 - 4 /hpf (0-5) 04/17/18 15:48 Urine Opiates Screen Positive (NEGATIVE) H 04/17/18 15:50 Urine Methadone Screen Negative (NEGATIVE) 04/17/18 15:50 Ur Barbiturates Screen Negative (NEGATIVE) 04/17/18 15:50 Ur Phencyclidine Scrn Negative (NEGATIVE) 04/17/18 15:50 Ur Amphetamines Screen Negative (NEGATIVE) 04/17/18 15:50 U Benzodiazepines Scrn Positive (NEGATIVE) H 04/17/18 15:50 U Oth Cocaine Metabols Negative (NEGATIVE) 04/17/18 15:50 U Cannabinoids Screen Negative (NEGATIVE) 04/17/18 15:50 Alcohol, Quantitative < 10 mg/dL (0-10) 04/17/18 23:10 Attending/Attestation - Attestation I have personally seen and examined this patient.: Yes I have fully participated in the care of the patient.: Yes I have reviewed all pertinent clinical information, including history, physical exam and plan: Yes Notes (Text): 04/22/18 07:43 Attending note; Patient seen and examined with resident. Patient is alert and awake. Denies any chest pain, shortness of breath. Denies any abdominal pain, nausea, vomiting. Tolerating diet well. Her anxiety symptoms are resolving. Patient was evaluated by psychiatrist this morning. Patient is a 52-year-old female past medical history significant for type 2 diabetes, cholelithiasis, asthma, COPD, GERD, and chronic opioid dependency presented to the emergency room with left-sided rib pain for 3 days. 1. Left rib pain. CT chest showed chronic emphysematous changes and bulla and mild atelectasis . Treated with Vantin and Zithromax. Ribs xray showed large left upper lobe bulla, left basilar atelectasis/infiltrate. Patient afebrile. No leukocytosis. Procalcitonin < 0.05. Continue home pain medications, [employer] reviewed. Blood cultures with no growth. Sputum culture with normal oral nita. 2. COPD. Continue O2 via nasal cannula as needed. Continue nebulizer treatments. Patient counseled on tobacco cessation. 3. Schizophrenia; patient was evaluated by psychiatrist. Patient refused inpatient psychiatric admission. Patient was cleared by psychiatrist for discharge home with close outpatient follow-up. 4. Chronic pain/opioid dependency. [employer]PER[employer] reviewed. Patient continued on home medications. Patient counseled at length on decreasing her medications and weaning off opioids. 5. [id number] type 2 diabetes. Diet controlled. Blood sugars well controlled. Continue to monitor. 6. Tobacco abuse. Counseled at length on tobacco cessation. Patient also uses oxygen at home. Side effects of smoking with oxygen explained in detail. Patient will be discharged home. Patient will follow up with PMD Dr. Kimberly Oswald. Prognosis is poor secondary to severe COPD, oxygen dependent, active smoking , opiate use and psychiatric disorder. Patient needs close follow-up with PMD for further management. Time spent over 30 minutes explaining discharge instructions and follow-up. 04/22/18 07:49
== END 2018-04-21 16:13 | disposition home or self-care (01) | DRG 89 ==
LOC: ED 14:32 → ERH 19:42 → 5RNO 21:56 → 5RSO 22:18
PROVIDERS: ADMIT Hospitalist; ATTEND Internal Medicine
DX: J18.9 Pneumonia, unspecified organism (principal); J43.0 Unilateral pulmonary emphysema [MacLeod's syndrome]; J44.0 Chronic obstructive pulmonary disease with (acute) lower respiratory infection; F25.9 Schizoaffective disorder, unspecified; F11.20 Opioid dependence, uncomplicated; J98.11 Atelectasis; I16.0 Hypertensive urgency; E11.9 Type 2 diabetes mellitus without complications; F17.210 Nicotine dependence, cigarettes, uncomplicated; K21.9 Gastro-esophageal reflux disease without esophagitis; K80.20 Calculus of gallbladder without cholecystitis without obstruction; F41.0 Panic disorder [episodic paroxysmal anxiety]; M54.9 Dorsalgia, unspecified; G89.29 Other chronic pain; Z95.1 Presence of aortocoronary bypass graft; Z99.81 Dependence on supplemental oxygen; Z85.41 Personal history of malignant neoplasm of cervix uteri